=== PATIENT | female | born 1950 | race Caucasian/White ===

== ENCOUNTER 2023-01-09 12:19 | Inpatient (IN) | payer MEDICARE, SELFPAY ==
[2023-01-09] VITALS (27 sets, daily range): BP systolic 104–141; BP diastolic 58–86; PULSE 66–115; RESP 14–55; TEMP 31–36.8; O2SAT 91–100; BMI 30.1
--- NOTE | 2023-01-09 12:43 | DI.CT.S_ITS ---
PROCEDURE: CT HEAD/BRAIN WO CON INDICATIONS: confusion TECHNIQUE: Noncontrast 4.5 mm thick angled axial sections acquired from the foramen magnum to the vertex, with coronal and sagittal reformats. For radiation dose reduction, the following was used: automated exposure control, adjustment of mA and/or kV according to patient size. COMPARISON: None. FINDINGS: Image quality: Excellent. CSF spaces: Basal cisterns are patent. No extra-axial fluid collections. The ventricles are symmetric in size and shape. Brain: No intracranial bleeds or masses. There is cerebral volume loss for age, with resultant ventricular and sulcal prominence. There are periventricular and deep white matter chronic small vessel ischemic changes. There is intracranial internal carotid artery atherosclerosis. Skull and face: Calvarium and visualized facial bones appear intact, without suspicious lesions. Sinuses: Visualized sinuses and mastoids are clear. IMPRESSION: Age-appropriate appearance of brain parenchyma. No evidence acute intracranial process. Dictated by: Butch Guerra M.D. on 01/09/2023 at 13:50 Approved by: Butch Guerra M.D. on 01/09/2023 at 13:51
--- NOTE | 2023-01-09 12:43 | DI.RAD.S_ITS ---
PROCEDURE: XR CHEST 1V INDICATIONS: altered mental status TECHNIQUE: One view of the chest was acquired. COMPARISON: None. FINDINGS: Surgical changes and devices: None. Lungs and pleura: Increased pulmonary markings with streaky perihilar opacities. Small pleural effusions. Mediastinum: Probable cardiomegaly. Bones and chest wall: Convex right rotoscoliosis. IMPRESSION: Suspect moderate pulmonary edema, given streaky perihilar opacities, small effusions and increased pulmonary markings. Dictated by: Salvador Lieberman M.D. on 01/09/2023 at 13:18 Approved by: Salvador Lieberman M.D. on 01/09/2023 at 13:19
--- NOTE | 2023-01-09 13:12 | PC.NURSE ---
Pt family called from waiting room, reports home oxygen battery . Supplied pt portable tank, pt on 4L NC.
[2023-01-09 15:10] LABS: Add Manual Diff / Slide Review NO; Basophils Absolute Auto 0 /uL (0-100); Basophils Percent Auto 0.2 % (0-2); Eosinophils Absolute Auto 100 /uL (0-450); Eosinophils Percent Auto 0.7 % (2-4); Hematocrit 44.2 % (36-46); Lymphocytes Absolute Auto 500 /uL (1100-4500); Lymphocytes Percent Auto 7.6 % (25-40); Mean Corpuscular HGB Conc 31.7 % (30-36); Mean Corpuscular Hemoglobin 29.2 PG (26-34); Mean Corpuscular Volume 91.9 fL (80-100); Monocytes Absolute Auto 800 /uL (0-900); Monocytes Percent Auto 11.2 % (3-14); Neutrophils Absolute Auto 5600 /uL (1500-7000); Neutrophils Percent Auto 80.3 % (50-75); Platelet Count 232 X10^3/uL (150-400); Red Blood Cell Count 4.81 X10^6/uL (4.0-5.2); Red Cell Distribution Width 14.5 % (11.6-14.8)
[2023-01-09 15:33] LABS: Alanine Aminotransferase 25 IU/L (<35); Albumin 3.9 g/dL (3.5-5.0); Albumin Globulin Ratio 0.9 (1.0-2.8); Alkaline Phosphatase 94 U/L (38-126); Aspartate Aminotransferase 27 IU/L (14-36); BUN Creatinine Ratio 37.5 (6-22); Bilirubin Total 0.7 mg/dL (0.2-1.3); Blood Urea Nitrogen 18 mg/dL (7-17); Calcium 8.8 mg/dL (8.4-10.2); Chloride 89 mmol/L (98-107); Estimated Glomerular Filt Rate > 60 mL/min (>60); Globulin 4.3 g/dL (1.7-4.1); Glucose 110 mg/dL (80-110); Potassium 4.7 mmol/L (3.4-5.1); Sodium 140 mmol/L (137-145); Total Protein 8.2 g/dL (6.3-8.2)
[2023-01-09 15:40] LABS: HEMOLYSIS 18 (0-50)
--- NOTE | 2023-01-09 15:43 | ED.GENADULT ---
HPI - General Adult General Chief complaint: Altered Mental Status Stated complaint: Disorientation, hard to wake up, memory issues Time Seen by Provider: 01/09/23 14:41 Source: patient and family () Mode of arrival: Wheelchair Limitations: no limitations History of Present Illness HPI narrative: 72-year-old female. Does have history of COPD. Is on oxygen at home at all times somewhere between 2 and 4 L depending on her activity. There oxygen generator at home failed several weeks ago. She is been on a portable oxygen since then. They have been unable to come and get it fixed. Patient's states that over the past several days and nights she is been occasionally confused. He states he is having very difficult time waking her up at night. They went to an outside hospital recently. She was found to be hypoxic. They increased her oxygen and discharged home. Patient's states that last evening symptoms seem to be getting worse. She was much more difficult to arouse. Has been less active because of balance issues at home as well. Here in the emergency department the patient states she is not having any shortness of breath. No chest pain. No abdominal pain. No nausea or vomiting. Denies any headaches. There has not been any reported trauma. Patient not on anticoagulation. Related Data Allergies Allergy/AdvReac Type Severity Reaction Status Date / Time CLINDAMYCIN Allergy Unknown RASH Uncoded 01/09/23 12:37 PENICILLIN Allergy Unknown RASH Uncoded 01/09/23 12:37 Review of Systems Constitutional Constitutional: Reports system reviewed and no additional complaints, except as documented Cardiovascular Cardiovascular: Reports system reviewed and no additional complaints, except as documented Respiratory Respiratory: Reports system reviewed and no additional complaints, except as documented Gastrointestinal Gastrointestinal: Reports system reviewed and no additional complaints, except as documented Integumentary/Breasts Skin/Breast: Reports system reviewed and no additional complaints, except as documented Neurologic Neurologic: Reports system reviewed and no additional complaints, except as documented Hematologic/Lymphatic On Anticoagulants: No Patient History Medical History COPD (chronic obstructive pulmonary disease) Social History Smoking Status: Never smoker Smoking Status: Never smoker Substance Use Type: does not use Exam Initial Vital Signs Initial Vital Signs: Vital Signs Temperature 97.8 F 01/09/23 12:26 Pulse Rate 110 H 01/09/23 12:26 Respiratory Rate 16 01/09/23 12:26 Blood Pressure 124/60 01/09/23 12:26 Pulse Oximetry 95 01/09/23 12:26 Oxygen Delivery Method Nasal Cannula 01/09/23 12:26 Oxygen Flow Rate 3 01/09/23 12:26 HENMT Head: normal to inspection and normocephalic Resp Effort & Inspection: labored, no respiratory distress and tachypneic Auscultation: clear to auscultation bilaterally Cardio Rate: regular rate Rhythm: regular rhythm GI Inspection: non-distended Skin General: no rashes or lesions noted Neuro General: patient alert, patient awake, moves all extremities, no focal motor deficits, patient confused and not obtunded Extrem General: edema Scores GCS Corwin coma scale eye opening: Spontaneous [place] coma scale verbal response: Confused Corwin coma scale motor response: Obey commands [place] coma scale total score: 14 Course Orders Ordered: ED Orders 01/09/23 12:43 CT head/brain wo con Stat XR chest 1V Stat 01/09/23 14:57 BNP [NT-proBNP (BNP-Adult 18+)] Stat Complete Blood Count AUTO DIFF Stat Comprehensive Metabolic Panel Stat Magnesium Urgent Procalcitonin Urgent TSH w/ Reflex to FT4 Urgent 01/09/23 15:08 EKG-12 Lead Stat 01/09/23 16:09 ABG [Arterial Blood Gas] Stat 01/09/23 16:39 Respiratory Panel (Film Array) Stat 01/09/23 17:00 ABG [Arterial Blood Gas] Stat 01/09/23 17:01 EC echo doppler complete Urgent 01/09/23 17:06 BiPAP Ventilatory Support RT PROTOCOL 01/09/23 17:07 Consult to Tele-special client bus driver Routine 01/09/23 17:45 Troponin I Q6H 01/09/23 23:15 Troponin I Q6H 01/10/23 05:00 BMP [Basic Metabolic Panel] DAILY CBC Auto Diff [Complete Blood Count AUTO DIFF] DAILY 01/10/23 05:15 Troponin I Q6H 01/11/23 05:00 BMP [Basic Metabolic Panel] DAILY CBC Auto Diff [Complete Blood Count AUTO DIFF] DAILY 01/12/23 05:00 BMP [Basic Metabolic Panel] DAILY CBC Auto Diff [Complete Blood Count AUTO DIFF] DAILY Acetaminophen (Acetaminophen 325 Mg Tablet) 650 mg PO Q6H PRN PRN Reason: Fever/Mild Pain (1-3) Albuterol/Ipratropium (Albuterol/Ipratropium 3 Ml Ampul) 3 ml INH [id number] PRN PRN Reason: shortness of breath/wheezing Last Admin: 01/09/23 18:00 Dose: 3 ml Documented By: KARLA Enoxaparin Sodium (Enoxaparin 40 Mg/0.4 Ml Syringe) 40 mg SUBCUT DAILY [facility] Ceftriaxone Sodium 1,000 mg/ (Sodium Chloride) 100 mls @ 200 mls/hr IV Q24H JONATHAN Stop: 01/14/23 16:59 Last Admin: 01/09/23 18:43 Dose: 200 mls/hr Documented By: EFRAIN Azithromycin 500 mg/ Dextrose 250 mls @ 250 mls/hr IV Q24H [facility] Stop: 01/12/23 17:59 Melatonin (Melatonin 3 Mg Tablet) 6 mg PO BEDTIME PRN PRN Reason: Insomnia Methylprednisolone (Methylprednisolone 40 Mg/Ml Vial) 60 mg IV Q6HR [facility] Naloxone HCl (Naloxone 0.4 Mg/Ml Vial) 0.2 mg IV Q2MIN PRN PRN Reason: Opiate Reversal Polyethylene Glycol (Polyethylene Glycol 3350 17 Gm Powd.Pack) 17 gm PO DAILY PRN PRN Reason: Constipation Sennosides (Sennosides 8.6 Mg Tablet) 8.6 mg PO BID PRN PRN Reason: Constipation Discontinued Medications Furosemide (Furosemide 40 Mg/4 Ml Vial) 40 mg IV NOW ONE Stop: 01/09/23 17:06 Last Admin: 01/09/23 18:43 Dose: 40 mg Documented By: EFRAIN Methylprednisolone (Methylprednisolone 125 Mg/2 Ml Vial) 125 mg IV NOW ONE Stop: 01/09/23 17:04 Last Admin: 01/09/23 18:43 Dose: 125 mg Documented By: EFRAIN Vital Signs Vital signs: Vital Signs - 8 hr 01/09/23 12:26 01/09/23 15:01 01/09/23 15:30 Temperature 97.8 F Pulse Rate 110 H 99 H Respiratory Rate 16 19 Blood Pressure 124/60 127/78 Pulse Oximetry 95 100 Oxygen Delivery Method Nasal Cannula Oxygen Flow Rate 3 3.5 Fraction of Inspired Oxygen 01/09/23 15:30 01/09/23 16:00 01/09/23 16:00 Temperature Pulse Rate 106 H 106 H Respiratory Rate 40 H 33 H Blood Pressure 134/62 Pulse Oximetry 98 96 Oxygen Delivery Method Nasal Cannula Nasal Cannula Oxygen Flow Rate 3.5 4 Fraction of Inspired Oxygen 01/09/23 16:45 01/09/23 16:30 01/09/23 16:30 Temperature Pulse Rate 105 H Respiratory Rate Blood Pressure 125/58 L 125/58 L Pulse Oximetry 97 Oxygen Delivery Method Nasal Cannula Oxygen Flow Rate 4 Fraction of Inspired Oxygen 35 01/09/23 17:00 01/09/23 17:00 Temperature Pulse Rate 108 H Respiratory Rate 34 H Blood Pressure 118/61 Pulse Oximetry 98 Oxygen Delivery Method BiPAP Oxygen Flow Rate Fraction of Inspired Oxygen Medical Decision Making Medical Records Medical records reviewed: Yes I reviewed the patient's medical records. Lab Data Lab results reviewed: Yes I reviewed the patient's lab results. 01/09/23 14:57 01/09/23 14:57 Labs: Lab Results 01/09/23 01/09/23 01/09/23 Range/Units 14:57 14:57 14:57 WBC 7.0 (4.5-11.0) X10^3/uL RBC 4.81 (4.0-5.2) X10^6/uL Hgb 14.0 (12.0-16.0) g/dL Hct 44.2 (36-46) % MCV 91.9 (80-100) fL MCH 29.2 (26-34) PG MCHC 31.7 (30-36) % RDW 14.5 (11.6-14.8) % Plt Count 232 (150-400) X10^3/uL Neut % (Auto) 80.3 H (50-75) % Lymph % (Auto) 7.6 L (25-40) % Harrison % (Auto) 11.2 (3-14) % Eos % (Auto) 0.7 L (2-4) % Baso % (Auto) 0.2 (0-2) % Neut # (Auto) 5600 (3284-2736) /uL Lymph # (Auto) 500 L (1961-5465) /uL Harrison # (Auto) 800 (0-900) /uL Eos # (Auto) 100 (0-450) /uL Baso # (Auto) 0 (0-100) /uL ABG pH (7.35-7.45) ABG pCO2 (35-45) mmHg ABG pO2 (80-100) mmHg ABG HCO3 (23-27) mmol/L ABG Total CO2 (23-27) mmol/L ABG O2 Saturation (95-100) % ABG Base Excess (-2-3) mmol/L FiO2 Sodium 140 (137-145) mmol/L Potassium 4.7 (3.4-5.1) mmol/L Chloride 89 L (98-107) mmol/L Carbon Dioxide 51 H* (22-32) mmol/L BUN 18 H (7-17) mg/dL Creatinine 0.48 L (0.52-1.04) mg/dL Estimated GFR > 60 (>60) mL/min BUN/Creatinine Ratio 37.5 H (6-22) Glucose 110 (80-110) mg/dL Calcium 8.8 (8.4-10.2) mg/dL Magnesium (1.6-2.3) mg/dL Total Bilirubin 0.7 (0.2-1.3) mg/dL AST 27 (14-36) IU/L ALT 25 (<35) IU/L Alkaline Phosphatase 94 (38-126) U/L NT-Pro-B Natriuret Pep (<125) pg/mL Total Protein 8.2 (6.3-8.2) g/dL Albumin 3.9 (3.5-5.0) g/dL Globulin 4.3 H (1.7-4.1) g/dL Albumin/Globulin Ratio 0.9 L (1.0-2.8) Procalcitonin 0.05 (<0.5) ng/mL TSH (0.47-4.68) uIU/mL Chlamy pneumoniae PCR (Not Detect) Adenovirus (PCR) (Not Detect) B. pertussis DNA (PCR) (Not Detecte) B.parapertussis DNA PCR (Not Detecte) Coronavirus OC43 (PCR) (Not Detect) Coronavirus HKU1 (PCR) (Not Detect) Coronavirus 229E (PCR) (Not Detect) SARS-CoV-2 (PCR) (Not Detecte) Coronavirus NL63 (PCR) (Not Detect) Human Metapneumovir PCR (Not Detect) Influenza Type A (PCR) (Not Detect) Influenza Type B (PCR) (Not Detect) M. pneumoniae (PCR) (Not Detect) Parainfluenza 1 (PCR) (Not Detect) Parainfluenza 2 (PCR) (Not Detect) Parainfluenza 3 (PCR) (Not Detect) Parainfluenza 4 (PCR) (Not Detect) RSV (PCR) (Not Detect) Entero/Rhino (PCR) (Not Detect) 01/09/23 01/09/23 01/09/23 Range/Units 14:57 14:57 14:57 WBC (4.5-11.0) X10^3/uL RBC (4.0-5.2) X10^6/uL Hgb (12.0-16.0) g/dL Hct (36-46) % MCV (80-100) fL MCH (26-34) PG MCHC (30-36) % RDW (11.6-14.8) % Plt Count (150-400) X10^3/uL Neut % (Auto) (50-75) % Lymph % (Auto) (25-40) % Harrison % (Auto) (3-14) % Eos % (Auto) (2-4) % Baso % (Auto) (0-2) % Neut # (Auto) (0124-0808) /uL Lymph # (Auto) (8618-2362) /uL Harrison # (Auto) (0-900) /uL Eos # (Auto) (0-450) /uL Baso # (Auto) (0-100) /uL ABG pH (7.35-7.45) ABG pCO2 (35-45) mmHg ABG pO2 (80-100) mmHg ABG HCO3 (23-27) mmol/L ABG Total CO2 (23-27) mmol/L ABG O2 Saturation (95-100) % ABG Base Excess (-2-3) mmol/L FiO2 Sodium (137-145) mmol/L Potassium (3.4-5.1) mmol/L Chloride (98-107) mmol/L Carbon Dioxide (22-32) mmol/L BUN (7-17) mg/dL Creatinine (0.52-1.04) mg/dL Estimated GFR (>60) mL/min BUN/Creatinine Ratio (6-22) Glucose (80-110) mg/dL Calcium (8.4-10.2) mg/dL Magnesium 1.8 (1.6-2.3) mg/dL Total Bilirubin (0.2-1.3) mg/dL AST (14-36) IU/L ALT (<35) IU/L Alkaline Phosphatase (38-126) U/L NT-Pro-B Natriuret Pep 2480 H (<125) pg/mL Total Protein (6.3-8.2) g/dL Albumin (3.5-5.0) g/dL Globulin (1.7-4.1) g/dL Albumin/Globulin Ratio (1.0-2.8) Procalcitonin (<0.5) ng/mL TSH 1.12 (0.47-4.68) uIU/mL Chlamy pneumoniae PCR (Not Detect) Adenovirus (PCR) (Not Detect) B. pertussis DNA (PCR) (Not Detecte) B.parapertussis DNA PCR (Not Detecte) Coronavirus OC43 (PCR) (Not Detect) Coronavirus HKU1 (PCR) (Not Detect) Coronavirus 229E (PCR) (Not Detect) SARS-CoV-2 (PCR) (Not Detecte) Coronavirus NL63 (PCR) (Not Detect) Human Metapneumovir PCR (Not Detect) Influenza Type A (PCR) (Not Detect) Influenza Type B (PCR) (Not Detect) M. pneumoniae (PCR) (Not Detect) Parainfluenza 1 (PCR) (Not Detect) Parainfluenza 2 (PCR) (Not Detect) Parainfluenza 3 (PCR) (Not Detect) Parainfluenza 4 (PCR) (Not Detect) RSV (PCR) (Not Detect) Entero/Rhino (PCR) (Not Detect) 01/09/23 01/09/23 Range/Units 16:09 16:39 WBC (4.5-11.0) X10^3/uL RBC (4.0-5.2) X10^6/uL Hgb (12.0-16.0) g/dL Hct (36-46) % MCV (80-100) fL MCH (26-34) PG MCHC (30-36) % RDW (11.6-14.8) % Plt Count (150-400) X10^3/uL Neut % (Auto) (50-75) % Lymph % (Auto) (25-40) % Harrison % (Auto) (3-14) % Eos % (Auto) (2-4) % Baso % (Auto) (0-2) % Neut # (Auto) (1365-6963) /uL Lymph # (Auto) (4384-0689) /uL Harrison # (Auto) (0-900) /uL Eos # (Auto) (0-450) /uL Baso # (Auto) (0-100) /uL ABG pH 7.27 L* (7.35-7.45) ABG pCO2 114.7 H* (35-45) mmHg ABG pO2 107 H (80-100) mmHg ABG HCO3 52 H (23-27) mmol/L ABG Total CO2 > 50 H (23-27) mmol/L ABG O2 Saturation 96 (95-100) % ABG Base Excess 25.0 H (-2-3) mmol/L FiO2 32 Sodium (137-145) mmol/L Potassium (3.4-5.1) mmol/L Chloride (98-107) mmol/L Carbon Dioxide (22-32) mmol/L BUN (7-17) mg/dL Creatinine (0.52-1.04) mg/dL Estimated GFR (>60) mL/min BUN/Creatinine Ratio (6-22) Glucose (80-110) mg/dL Calcium (8.4-10.2) mg/dL Magnesium (1.6-2.3) mg/dL Total Bilirubin (0.2-1.3) mg/dL AST (14-36) IU/L ALT (<35) IU/L Alkaline Phosphatase (38-126) U/L NT-Pro-B Natriuret Pep (<125) pg/mL Total Protein (6.3-8.2) g/dL Albumin (3.5-5.0) g/dL Globulin (1.7-4.1) g/dL Albumin/Globulin Ratio (1.0-2.8) Procalcitonin (<0.5) ng/mL TSH (0.47-4.68) uIU/mL Chlamy pneumoniae PCR Not detected (Not Detect) Adenovirus (PCR) Not detected (Not Detect) B. pertussis DNA (PCR) Not detected (Not Detecte) B.parapertussis DNA PCR Not detected (Not Detecte) Coronavirus OC43 (PCR) Not detected (Not Detect) Coronavirus HKU1 (PCR) Not detected (Not Detect) Coronavirus 229E (PCR) Not detected (Not Detect) SARS-CoV-2 (PCR) Not detected (Not Detecte) Coronavirus NL63 (PCR) Not detected (Not Detect) Human Metapneumovir PCR Not detected (Not Detect) Influenza Type A (PCR) Not detected (Not Detect) Influenza Type B (PCR) Not detected (Not Detect) M. pneumoniae (PCR) Not detected (Not Detect) Parainfluenza 1 (PCR) Not detected (Not Detect) Parainfluenza 2 (PCR) Not detected (Not Detect) Parainfluenza 3 (PCR) Not detected (Not Detect) Parainfluenza 4 (PCR) Not detected (Not Detect) RSV (PCR) Not detected (Not Detect) Entero/Rhino (PCR) Not detected (Not Detect) Imaging Data Chest x-ray: Radiologist's Impression: PROCEDURE:? XR CHEST 1V ? INDICATIONS:? altered mental status ? TECHNIQUE:? One view of the chest was acquired.? ? COMPARISON:? None. ? FINDINGS:? ? Surgical changes and devices:? None.? ? Lungs and pleura:? Increased pulmonary markings with streaky perihilar opacities.? Small pleural effusions. ? Mediastinum:? Probable cardiomegaly. ? Bones and chest wall:? Convex right rotoscoliosis. ? IMPRESSION:? Suspect moderate pulmonary edema, given streaky perihilar opacities, small effusions and increased pulmonary markings. CT scan - head: Radiologist's Impression: PROCEDURE:? CT HEAD/BRAIN WO CON ? INDICATIONS:? confusion ? TECHNIQUE:? Noncontrast 4.5 mm thick angled axial sections acquired from the foramen magnum to the vertex, with coronal and sagittal reformats.? For radiation dose reduction, the following was used:? automated exposure control, adjustment of mA and/or kV according to patient size.? ? COMPARISON:? None. ? FINDINGS:? Image quality:? Excellent.? ? CSF spaces:? Basal cisterns are patent.? No extra-axial fluid collections.? The ventricles are symmetric in size and shape.? ? Brain:? No intracranial bleeds or masses.? There is cerebral volume loss for age, with resultant ventricular and sulcal prominence.? There are periventricular and deep white matter chronic small vessel ischemic changes.? There is intracranial internal carotid artery atherosclerosis.? ? Skull and face:? Calvarium and visualized facial bones appear intact, without suspicious lesions.? ? Sinuses:? Visualized sinuses and mastoids are clear.? ? IMPRESSION:? Age-appropriate appearance of brain parenchyma.? No evidence acute intracranial process. ECG Data Attestation: I personally reviewed and interpreted this ECG as follows: Interpretation: Sinus tachycardia Ventricular rate 101 Left axis deviation Normal QRS Normal QTC LVH No ST T wave changes MDM Narrative Medical decision making narrative: Patient does have a history of COPD. Her oxygen saturations since being here in the emergency department or in the mid 90s. Her CO2 is significantly elevated which I suspect is the cause of her confusion and her difficulty with arousal. Given her medical history I do doubt that the patient normally lives at a normal CO2 but I feel that 114 is much higher than what would be her baseline. She is acidotic because of this. Patient is alert to person and place but is somewhat confused about the situation is why she is here and she also repeats questions multiple times. Had a discussion with her and her family at bedside about BiPAP. Initially patient was reluctant to this however we discussed alternatives which would be to do nothing versus intubation both of which I felt were not appropriate given her presentation. She did expressed understanding of this. She did tolerate BiPAP fairly well. I did discuss the case with Dr. Cruz on-call for Internal Medicine. Patient does require admission to the hospital for further respiratory support. He will admit. Family expressed understanding and agreement with admission as well. Discharge Plan Departure Patient Disposition: Admitted As Inpatient Clinical Impression: Hypercapnic respiratory failure, COPD (chronic obstructive pulmonary disease) Admit Date/Time: 01/09/23 17:14 Admit Provider: Ru Cruz
[2023-01-09 16:00] LABS: Carbon Dioxide 51 mmol/L (22-32)
[2023-01-09 16:21] LABS: Fractionated Inspired Oxygen 32; HCO3 ABG 52 mmol/L (23-27); Oxygen Saturation ABG 96 % (95-100); PCO2 ABG 114.7 mmHg (35-45); PO2 ABG 107 mmHg (80-100); TCO2 ABG > 50 mmol/L (23-27); pH ABG 7.27 (7.35-7.45)
--- NOTE | 2023-01-09 16:47 | RT ---
PT PLACED ON BIPAP IN ED FOR HYPERCAPNEA PER VERBAL ORDER BY DR. PORTILLO.
--- NOTE | 2023-01-09 17:01 | DI.ECHO.S_ITS ---
[place] [facility]---------+ [facility] +---------+ : : [address] [place] [address] : : : : [id number] : : : : Phone: [phone]+ Echocardiogram Report + + :Name: SHEEBA KELLY Study Date: 01/10/2023 Height: 58 in : :[facility] ReadingLocation: Weight: 144 lb: : Gender: Female BSA: 1.6 m2 : :: 1950 Age: 72 yrs BP: 91/53 mmHg: :Reason For Study: PULMONARY EDEMA : :Ordering Physician: PARISA, : :FAMILIA Iniguez Performed By: Karina Wells : :Referring: FAMILIA MCCAULEY : + + Interpretation Summary There is mild concentric left ventricular hypertrophy. The ejection fraction is estimated to be 50-55%. Diastolic parameters suggest probable elevated filling pressures. The right ventricle is mildly dilated. The right ventricular systolic function is normal. Mild biatrial enlargement. There is mild aortic regurgitation. Pulmonary artery pressures cannot be estimated because of the lack of a measurable TR jet velocity. There is a trivial pericardial effusion noted. Procedure: A two-dimensional transthoracic echocardiogram with color flow and Doppler was performed. The study quality was technically difficult. There is no prior echocardiogram noted for this patient. The patient was in sinus rhythm with heart rates between 68-91 bpm during the exam. Left Ventricle: The left ventricle is normal in size. There is mild concentric left ventricular hypertrophy. The ejection fraction is estimated to be 50-55%. Diastolic function could not be accurately assessed due to unobtainable data. Diastolic parameters suggest probable elevated filling pressures. Right Ventricle: The right ventricle is mildly dilated. The right ventricular systolic function is normal. Atria: The left atrium is mildly dilated. The right atrium is mildly dilated. There is no Doppler evidence for an interatrial shunt. Mitral Valve: The mitral valve is normal in structure and function. There is trace mitral regurgitation. Aortic Valve: The aortic valve is not well visualized. There is no aortic valve stenosis. There is mild aortic regurgitation. Tricuspid Valve: The tricuspid valve is normal in structure and function. There is trace tricuspid regurgitation. Pulmonary artery pressures cannot be estimated because of the lack of a measurable TR jet velocity. Pulmonic Valve: The pulmonic valve is not well visualized. There is no pulmonic valvular regurgitation. Great Vessels: The aortic root is normal size. The ascending aorta could not be visualized. The inferior vena cava was not visualized. Pericardium/ Pleura There is a trivial pericardial effusion noted. There is no pleural effusion. MMode/2D Measurements & Calculations LVIDd: 4.6 cm LVOT diam: 2.2 cm LVIDs: 3.2 cm Ao root diam: 3.2 cm FS: 31.5 % Ao Arch Diam (Prox Trans): 3.5 cm EPSS: 1.7 cm IVSd: 1.1 cm LVPWd: 0.78 cm LV major. diameter/BSA (cm/m^2): 2.9 LV sys. diameter/BSA (cm/m^2): 2.0 LA A2 area: 18.6 cm2 RA long axis: 4.7 cm LA A4 area: 19.6 cm2 RA area: 17.5 cm2 LA length (vol): 5.3 cm RA vol: 55.3 ml LA vol: 58.0 ml RA : 34.9 ml/m2 LA vol index: 36.6 ml/m2 RVD1 (basal): 3.9 cm RVD2 (mid): 3.2 cm TAPSE: 2.1 cm Doppler Measurements & Calculations Ao V2 max: 126.8 cm/sec LVOT Max Chirss: 90.2 cm/sec Ao V2 mean: 92.1 cm/sec LV V1 max P.3 mmHg Ao max P.4 mmHg LV V1 VTI: 18.5 cm Ao mean P.7 mmHg MARVA(I,D): 2.7 cm2 Ao V2 VTI: 24.5 cm MARVA(V,D): 2.6 cm2 sev ratio: 0.75 MARVA indexed to BSA (cm^2/m^2): 1.7 MV E max chriss: 105.7 cm/sec PA V2 max: 76.1 cm/sec MV A max chriss: 84.1 cm/sec PA V2 mean: 57.0 cm/sec MV E/A: 1.3 PA mean P.4 mmHg Med Peak E' Chriss: 5.3 cm/sec PA pr(Accel): 39.6 mmHg E/E' med: 19.9 Lat Peak E' Chriss: 5.2 cm/sec E/E' lat: 20.1 E/e' average: 20.0 MV dec time: 0.23 sec SV(LVOT): 67.1 ml Reading Physician:08:37 AM
[2023-01-09 17:26] LABS: Magnesium 1.8 mg/dL (1.6-2.3)
[2023-01-09 17:36] LABS: NT-proBNP (BNP-Adult 18+) 2480 pg/mL (<125)
[2023-01-09 17:43] LABS: Procalcitonin 0.05 ng/mL (<0.5)
[2023-01-09 17:55] LABS: Adenovirus Not Detected (Not Detect); B. parapertussis Not Detected (Not Detecte); Bordetella pertussis Not Detected (Not Detecte); Chlamydophila pneumoniae Not Detected (Not Detect); Coronavirus 229E Not Detected (Not Detect); Coronavirus HKU1 Not Detected (Not Detect); Coronavirus NL 63 Not Detected (Not Detect); Coronavirus OC43 Not Detected (Not Detect); Human Metapneumovirus Not Detected (Not Detect); Human Rhinovirus/Enterovirus Not Detected (Not Detect); Influenza A Not Detected (Not Detect); Influenza B Not Detected (Not Detect); Mycoplasma pneumoniae Not Detected (Not Detect); Parainfluenza Virus 1 Not Detected (Not Detect); Parainfluenza Virus 2 Not Detected (Not Detect); Parainfluenza Virus 3 Not Detected (Not Detect); Parainfluenza Virus 4 Not Detected (Not Detect); Respiratory Syncytial Virus Not Detected (Not Detect); SARS- CoV-2 Not Detected (Not Detecte)
[2023-01-09 17:57] LABS: TSH w/ Reflex to FT4 1.12 uIU/mL (0.47-4.68)
[2023-01-09] MEDS: ALBUTEROL/IPRATROPIUM 3 ML AMPUL INH (18:00)
[2023-01-09 18:33] LABS: Troponin I 0.058 ng/mL (0.01-0.034)
--- NOTE | 2023-01-09 18:42 | PM.CN.EICU ---
History of Present Illness Consult details IF CAMERA ACTIVATED, patient seen via real-time interactive audiovisual communication: Camera activated Chief complaint: Disorientation, hard to wake up, memory issues Consent obtained for tele-edge bander hand care: Yes Patient Location: ICU Provider location (State): [place] Other participants/roles: Dr. Cruz [facility] Medical History (Updated 01/09/23 @ 18:58 by Catracho Sheth DO) COPD (chronic obstructive pulmonary disease) Social History household members: spouse Smoking Status: Never smoker alcohol intake: never Current Medications Current Medications Medications: Visit Medications (administered) Generic Name Dose Route Start Last Admin Trade Name Freq PRN Reason Stop Dose Admin Albuterol/Ipratropium 3 ml 01/09/23 16:58 01/09/23 18:00 Albuterol/Ipratropium 3 Ml Ampul INH 3 ml [id number] PRN Administration shortness of breath/wheezing Exam Vital Signs (past 8 hours): - 01/09/23 12:26 01/09/23 15:01 01/09/23 15:30 Temperature 97.8 F Pulse Rate 110 H 99 H Respiratory Rate 16 19 Blood Pressure 124/60 127/78 Pulse Oximetry 95 100 Oxygen Delivery Method Nasal Cannula Oxygen Flow Rate 3 3.5 Fraction of Inspired Oxygen 01/09/23 15:30 01/09/23 16:00 01/09/23 16:00 Temperature Pulse Rate 106 H 106 H Respiratory Rate 40 H 33 H Blood Pressure 134/62 Pulse Oximetry 98 96 Oxygen Delivery Method Nasal Cannula Nasal Cannula Oxygen Flow Rate 3.5 4 Fraction of Inspired Oxygen 01/09/23 16:45 01/09/23 16:30 01/09/23 16:30 Temperature Pulse Rate 105 H Respiratory Rate Blood Pressure 125/58 L 125/58 L Pulse Oximetry 97 Oxygen Delivery Method Nasal Cannula Oxygen Flow Rate 4 Fraction of Inspired Oxygen 35 01/09/23 17:00 01/09/23 17:00 01/09/23 17:30 Temperature Pulse Rate 108 H 105 H Respiratory Rate 34 H 34 H Blood Pressure 118/61 Pulse Oximetry 98 Oxygen Delivery Method BiPAP Oxygen Flow Rate Fraction of Inspired Oxygen 01/09/23 17:31 01/09/23 17:31 01/09/23 18:00 Temperature Pulse Rate 105 H Respiratory Rate 26 H Blood Pressure 133/60 122/58 L Pulse Oximetry 92 Oxygen Delivery Method BiPAP Oxygen Flow Rate Fraction of Inspired Oxygen 35 01/09/23 18:00 01/09/23 18:00 Temperature Pulse Rate 90 Respiratory Rate 36 H Blood Pressure 122/58 L Pulse Oximetry 98 Oxygen Delivery Method BiPAP Oxygen Flow Rate Fraction of Inspired Oxygen Fraction of Inspired Oxygen 35 Oxygen Delivery Method BiPAP Oxygen Flow Rate 4 Objective Labs 01/09/23 14:57 01/09/23 14:57 Labs: Laboratory Results - last 24 hr 01/09/23 01/09/23 01/09/23 14:57 14:57 14:57 WBC 7.0 RBC 4.81 Hgb 14.0 Hct 44.2 MCV 91.9 MCH 29.2 MCHC 31.7 RDW 14.5 Plt Count 232 Neut % (Auto) 80.3 H Lymph % (Auto) 7.6 L [place] % (Auto) 11.2 Eos % (Auto) 0.7 L Baso % (Auto) 0.2 Neut # (Auto) 5600 Lymph # (Auto) 500 L [place] # (Auto) 800 Eos # (Auto) 100 Baso # (Auto) 0 ABG pH ABG pCO2 ABG pO2 ABG HCO3 ABG Total CO2 ABG O2 Saturation ABG Base Excess FiO2 Sodium 140 Potassium 4.7 Chloride 89 L Carbon Dioxide 51 H* BUN 18 H Creatinine 0.48 L Estimated GFR > 60 BUN/Creatinine Ratio 37.5 H Glucose 110 Calcium 8.8 Magnesium Total Bilirubin 0.7 AST 27 ALT 25 Alkaline Phosphatase 94 Troponin I NT-Pro-B Natriuret Pep Total Protein 8.2 Albumin 3.9 Globulin 4.3 H Albumin/Globulin Ratio 0.9 L Procalcitonin 0.05 TSH Chlamy pneumoniae PCR Adenovirus (PCR) B. pertussis DNA (PCR) B.parapertussis DNA PCR Coronavirus OC43 (PCR) Coronavirus HKU1 (PCR) Coronavirus 229E (PCR) SARS-CoV-2 (PCR) Coronavirus NL63 (PCR) Human Metapneumovir PCR Influenza Type A (PCR) Influenza Type B (PCR) M. pneumoniae (PCR) Parainfluenza 1 (PCR) Parainfluenza 2 (PCR) Parainfluenza 3 (PCR) Parainfluenza 4 (PCR) RSV (PCR) Entero/Rhino (PCR) 01/09/23 01/09/23 01/09/23 14:57 14:57 14:57 WBC RBC Hgb Hct MCV MCH MCHC RDW Plt Count Neut % (Auto) Lymph % (Auto) [place] % (Auto) Eos % (Auto) Baso % (Auto) Neut # (Auto) Lymph # (Auto) [place] # (Auto) Eos # (Auto) Baso # (Auto) ABG pH ABG pCO2 ABG pO2 ABG HCO3 ABG Total CO2 ABG O2 Saturation ABG Base Excess FiO2 Sodium Potassium Chloride Carbon Dioxide BUN Creatinine Estimated GFR BUN/Creatinine Ratio Glucose Calcium Magnesium 1.8 Total Bilirubin AST ALT Alkaline Phosphatase Troponin I NT-Pro-B Natriuret Pep 2480 H Total Protein Albumin Globulin Albumin/Globulin Ratio Procalcitonin TSH 1.12 Chlamy pneumoniae PCR Adenovirus (PCR) B. pertussis DNA (PCR) B.parapertussis DNA PCR Coronavirus OC43 (PCR) Coronavirus HKU1 (PCR) Coronavirus 229E (PCR) SARS-CoV-2 (PCR) Coronavirus NL63 (PCR) Human Metapneumovir PCR Influenza Type A (PCR) Influenza Type B (PCR) M. pneumoniae (PCR) Parainfluenza 1 (PCR) Parainfluenza 2 (PCR) Parainfluenza 3 (PCR) Parainfluenza 4 (PCR) RSV (PCR) Entero/Rhino (PCR) 01/09/23 01/09/23 01/09/23 16:09 16:39 17:45 WBC RBC Hgb Hct MCV MCH MCHC RDW Plt Count Neut % (Auto) Lymph % (Auto) [place] % (Auto) Eos % (Auto) Baso % (Auto) Neut # (Auto) Lymph # (Auto) [place] # (Auto) Eos # (Auto) Baso # (Auto) ABG pH 7.27 L* ABG pCO2 114.7 H* ABG pO2 107 H ABG HCO3 52 H ABG Total CO2 > 50 H ABG O2 Saturation 96 ABG Base Excess 25.0 H FiO2 32 Sodium Potassium Chloride Carbon Dioxide BUN Creatinine Estimated GFR BUN/Creatinine Ratio Glucose Calcium Magnesium Total Bilirubin AST ALT Alkaline Phosphatase Troponin I 0.058 H NT-Pro-B Natriuret Pep Total Protein Albumin Globulin Albumin/Globulin Ratio Procalcitonin TSH Chlamy pneumoniae PCR Not detected Adenovirus (PCR) Not detected B. pertussis DNA (PCR) Not detected B.parapertussis DNA PCR Not detected Coronavirus OC43 (PCR) Not detected Coronavirus HKU1 (PCR) Not detected Coronavirus 229E (PCR) Not detected SARS-CoV-2 (PCR) Not detected Coronavirus NL63 (PCR) Not detected Human Metapneumovir PCR Not detected Influenza Type A (PCR) Not detected Influenza Type B (PCR) Not detected M. pneumoniae (PCR) Not detected Parainfluenza 1 (PCR) Not detected Parainfluenza 2 (PCR) Not detected Parainfluenza 3 (PCR) Not detected Parainfluenza 4 (PCR) Not detected RSV (PCR) Not detected Entero/Rhino (PCR) Not detected Assessment & Plan Assessment & Plan narrative: patient see on camera chart/labs/imaging reviewed case discussed with Dr. Cruz and bedside nurse 72 year old female with PMx of copd, kyphosis admitted to ICU for acute resp failure CHF exacerbation currently afebrile, HD stable aler awake follows some commands bnp 2480 abg 7.27/117/52 suggest -nuerochecks/seizure precautions -avoid benzos/opiods -bipap, optimize minute ventilation -repeat abg, if no improvement would consider intubation -nebs -steorids -check serial ekg/trop -check echo -lasix for diuretics -abx -cxs -monitor ins/outs -replace lytes -gi/dvt ppx -please call eICU if condition changes total ccm time 45 mins Time Spent With Patient Critical Care time: I spent a total of [] minutes of critical care time on this patient's care today; this time is exclusive of procedural time.
[2023-01-09] MEDS: methylPREDNISolone 125 MG/2 ML VIAL IV (18:43)
[2023-01-09] MEDS: cefTRIAXone 1,000 MG in SODIUM CHLORIDE 0.9% 100 ML 200 MG IV (18:43)
[2023-01-09] MEDS: FUROSEMIDE 40 MG/4 ML VIAL IV (18:43)
--- NOTE | 2023-01-09 18:51 | P.HP_ITS ---
History of Present Illness History of Present Illness Date Patient Seen: 01/09/23 Chief complaint: Disorientation, hard to wake up, memory issues Narrative: Sayra Null is a 72yo F with PMH of right-sided HF on chronic 1-2L O2, COPD, and scoliosis with kyphosis who presents with several days of worsening SOB and changes in mental status. History is obtained from as patient is int ermittently altered. He states she has been increasingly become more SOB and loopy after her home O2 machine stopped working, so he brought her to [place] ED. There they told her to increase her O2 and discharged her. She seemed to be better at home but then began to worsen and she became more and more altered so he brought her to [place] ED. In the ED patient had an ABG with pCO2 of 114 and was placed on Bipap. Patient's mental status currently seems to have improved on Bipap and she is oriented x2. Says she would like to be full code. Patient History Medical History (Updated 01/09/23 @ 18:58 by Catracho Sheth DO) COPD (chronic obstructive pulmonary disease) Family & Social History Safety & Behavioral: Feels Safe in Current Yes Environment Been Physically Hurt or No Threatened By a Person Tobacco & Substance use: Smoking Status Never smoker Substance Use Type does not use Meds Home Medications and Allergies Allergies Allergy/AdvReac Type Severity Reaction Status Date / Time CLINDAMYCIN Allergy Unknown RASH Uncoded 01/09/23 12:37 PENICILLIN Allergy Unknown RASH Uncoded 01/09/23 12:37 Review of Systems Review of Systems Narrative: All other systems reviewed with the patient and are negative unless otherwise stated. Exam Vital Signs (past 8 hours): - 01/09/23 12:26 01/09/23 15:01 01/09/23 15:30 Temperature 97.8 F Pulse Rate 110 H 99 H Respiratory Rate 16 19 Blood Pressure 124/60 127/78 Pulse Oximetry 95 100 Oxygen Delivery Method Nasal Cannula Oxygen Flow Rate 3 3.5 Fraction of Inspired Oxygen 01/09/23 15:30 01/09/23 16:00 01/09/23 16:00 Temperature Pulse Rate 106 H 106 H Respiratory Rate 40 H 33 H Blood Pressure 134/62 Pulse Oximetry 98 96 Oxygen Delivery Method Nasal Cannula Nasal Cannula Oxygen Flow Rate 3.5 4 Fraction of Inspired Oxygen 01/09/23 16:45 01/09/23 16:30 01/09/23 16:30 Temperature Pulse Rate 105 H Respiratory Rate Blood Pressure 125/58 L 125/58 L Pulse Oximetry 97 Oxygen Delivery Method Nasal Cannula Oxygen Flow Rate 4 Fraction of Inspired Oxygen 35 01/09/23 17:00 01/09/23 17:00 01/09/23 17:30 Temperature Pulse Rate 108 H 105 H Respiratory Rate 34 H 34 H Blood Pressure 118/61 Pulse Oximetry 98 Oxygen Delivery Method BiPAP Oxygen Flow Rate Fraction of Inspired Oxygen 01/09/23 17:31 01/09/23 17:31 01/09/23 18:00 Temperature Pulse Rate 105 H Respiratory Rate 26 H Blood Pressure 133/60 122/58 L Pulse Oximetry 92 Oxygen Delivery Method BiPAP Oxygen Flow Rate Fraction of Inspired Oxygen 35 01/09/23 18:00 01/09/23 18:00 Temperature Pulse Rate 90 Respiratory Rate 36 H Blood Pressure 122/58 L Pulse Oximetry 98 Oxygen Delivery Method BiPAP Oxygen Flow Rate Fraction of Inspired Oxygen Fraction of Inspired Oxygen 35 Oxygen Delivery Method BiPAP Oxygen Flow Rate 4 Narrative Exam Narrative: GEN: no acute distress HEENT: moist mucous membranes, PERRL NECK: trachea midline, no JVD CV: regular rate and rhythm, no murmurs PULM: clear bilaterally ABD: soft, nontender, nondistended, no organomegaly EXT: warm and well perfused with no edema NEURO: awake, alert, oriented, no focal deficits Objective Labs 01/09/23 14:57 01/09/23 14:57 Labs: Laboratory Results - last 24 hr 01/09/23 01/09/23 01/09/23 14:57 14:57 14:57 WBC 7.0 RBC 4.81 Hgb 14.0 Hct 44.2 MCV 91.9 MCH 29.2 MCHC 31.7 RDW 14.5 Plt Count 232 Neut % (Auto) 80.3 H Lymph % (Auto) 7.6 L [place] % (Auto) 11.2 Eos % (Auto) 0.7 L Baso % (Auto) 0.2 Neut # (Auto) 5600 Lymph # (Auto) 500 L [place] # (Auto) 800 Eos # (Auto) 100 Baso # (Auto) 0 ABG pH ABG pCO2 ABG pO2 ABG HCO3 ABG Total CO2 ABG O2 Saturation ABG Base Excess FiO2 Sodium 140 Potassium 4.7 Chloride 89 L Carbon Dioxide 51 H* BUN 18 H Creatinine 0.48 L Estimated GFR > 60 BUN/Creatinine Ratio 37.5 H Glucose 110 Calcium 8.8 Magnesium Total Bilirubin 0.7 AST 27 ALT 25 Alkaline Phosphatase 94 Troponin I NT-Pro-B Natriuret Pep Total Protein 8.2 Albumin 3.9 Globulin 4.3 H Albumin/Globulin Ratio 0.9 L Procalcitonin 0.05 TSH Chlamy pneumoniae PCR Adenovirus (PCR) B. pertussis DNA (PCR) B.parapertussis DNA PCR Coronavirus OC43 (PCR) Coronavirus HKU1 (PCR) Coronavirus 229E (PCR) SARS-CoV-2 (PCR) Coronavirus NL63 (PCR) Human Metapneumovir PCR Influenza Type A (PCR) Influenza Type B (PCR) M. pneumoniae (PCR) Parainfluenza 1 (PCR) Parainfluenza 2 (PCR) Parainfluenza 3 (PCR) Parainfluenza 4 (PCR) RSV (PCR) Entero/Rhino (PCR) 01/09/23 01/09/23 01/09/23 14:57 14:57 14:57 WBC RBC Hgb Hct MCV MCH MCHC RDW Plt Count Neut % (Auto) Lymph % (Auto) [place] % (Auto) Eos % (Auto) Baso % (Auto) Neut # (Auto) Lymph # (Auto) [place] # (Auto) Eos # (Auto) Baso # (Auto) ABG pH ABG pCO2 ABG pO2 ABG HCO3 ABG Total CO2 ABG O2 Saturation ABG Base Excess FiO2 Sodium Potassium Chloride Carbon Dioxide BUN Creatinine Estimated GFR BUN/Creatinine Ratio Glucose Calcium Magnesium 1.8 Total Bilirubin AST ALT Alkaline Phosphatase Troponin I NT-Pro-B Natriuret Pep 2480 H Total Protein Albumin Globulin Albumin/Globulin Ratio Procalcitonin TSH 1.12 Chlamy pneumoniae PCR Adenovirus (PCR) B. pertussis DNA (PCR) B.parapertussis DNA PCR Coronavirus OC43 (PCR) Coronavirus HKU1 (PCR) Coronavirus 229E (PCR) SARS-CoV-2 (PCR) Coronavirus NL63 (PCR) Human Metapneumovir PCR Influenza Type A (PCR) Influenza Type B (PCR) M. pneumoniae (PCR) Parainfluenza 1 (PCR) Parainfluenza 2 (PCR) Parainfluenza 3 (PCR) Parainfluenza 4 (PCR) RSV (PCR) Entero/Rhino (PCR) 01/09/23 01/09/23 01/09/23 16:09 16:39 17:45 WBC RBC Hgb Hct MCV MCH MCHC RDW Plt Count Neut % (Auto) Lymph % (Auto) [place] % (Auto) Eos % (Auto) Baso % (Auto) Neut # (Auto) Lymph # (Auto) [place] # (Auto) Eos # (Auto) Baso # (Auto) ABG pH 7.27 L* ABG pCO2 114.7 H* ABG pO2 107 H ABG HCO3 52 H ABG Total CO2 > 50 H ABG O2 Saturation 96 ABG Base Excess 25.0 H FiO2 32 Sodium Potassium Chloride Carbon Dioxide BUN Creatinine Estimated GFR BUN/Creatinine Ratio Glucose Calcium Magnesium Total Bilirubin AST ALT Alkaline Phosphatase Troponin I 0.058 H NT-Pro-B Natriuret Pep Total Protein Albumin Globulin Albumin/Globulin Ratio Procalcitonin TSH Chlamy pneumoniae PCR Not detected Adenovirus (PCR) Not detected B. pertussis DNA (PCR) Not detected B.parapertussis DNA PCR Not detected Coronavirus OC43 (PCR) Not detected Coronavirus HKU1 (PCR) Not detected Coronavirus 229E (PCR) Not detected SARS-CoV-2 (PCR) Not detected Coronavirus NL63 (PCR) Not detected Human Metapneumovir PCR Not detected Influenza Type A (PCR) Not detected Influenza Type B (PCR) Not detected M. pneumoniae (PCR) Not detected Parainfluenza 1 (PCR) Not detected Parainfluenza 2 (PCR) Not detected Parainfluenza 3 (PCR) Not detected Parainfluenza 4 (PCR) Not detected RSV (PCR) Not detected Entero/Rhino (PCR) Not detected Assessment & Plan Assessment & Plan narrative: # acute on chronic hypercapnic and hypoxic respiratory failure -patient normally on 1-2L at home, required Bipap in ED due to ABG with pCO2 of 114 -BMP with bicarb 51 so likely chronic CO2 retainer -continue Bipap -repeat ABG ordered -etiology likely CHF as pulm edema on CXR which may be from patient's R sided CHF, BNP 2480 -steroids ordered to cover for COPD exacerbation, however no wheezes on exam -lasix 40 BID -echo ordered #elevated troponin due to myocardial injury -trop 0.058, will trend but likely due to resp failure as no CP Code status is full code. COVID negative. DVT prophylaxis with Lovenox. Proxy is . I have reviewed home meds and used all available resources to reconcile the home meds. I spent a total of 35 minutes of critical care time on this patient's care today; this time is exclusive of procedural time. This patient will be admitted as ICU and will require greater than 2 midnights of hospital time to treat hypercapnic respiratory failure. Time Spent With Patient Critical Care time: I spent a total of [] minutes of critical care time on this patient's care today; this time is exclusive of procedural time.
[2023-01-09] MEDS: dexmedeTOMIDine in 0.9 % NaCL 400 MCG/100 ML PLAST..BAG IV (19:54)
[2023-01-09 20:21] LABS: Fractionated Inspired Oxygen 35; HCO3 ABG 51 mmol/L (23-27); Oxygen Saturation ABG 97 % (95-100); PCO2 ABG 56.5 mmHg (35-45); PO2 ABG 84 mmHg (80-100); TCO2 ABG > 50 mmol/L (23-27); pH ABG 7.56 (7.35-7.45)
--- NOTE | 2023-01-09 21:19 | PC.NURSE ---
Addendum entered by Ladan Louise R.N. 01/10/23 06:07: extra dose of lopressor 25mg held due to blood pressure of 91/52 and heart rate of 61. Addendum entered by Ladan Louise R.N. 01/10/23 05:44: Patient with runs of SVT again, Dr. Hernandez notified and new orders noted. Labs added for morning draw awaiting results. Addendum entered by Ladan Louise R.N. 01/10/23 03:11: Patient awakening and pulling large volumes on bipap. trialed on heated high flow with average results. When falling asleep needing more oxygen to support respiratory status. Fine tuning settings and Dr. Hernandez aware of change. Addendum entered by Ladan Louise R.N. 01/09/23 23:03: Patient having runs of svt heart rate 160-170. Patient able to come out of it on her own, Dr. Hernandez called and new ordered noted. Addendum entered by Ladan Louise R.N. 01/09/23 21:54: Mask removed for patient to drink water, O2 sats only holding above 88 for approximately 4 minutes before O2 sats slowly decreasing. Patient able to swallow pills without difficulty, and minimal coaching. Original Note: Patient becoming very anxious, grasping at covers, respiratory rate 60-70 on bipap, elevated heart rate. first calling merry and referred to teleintensivist. New orders noted for precedex and started at 0.2. slowly increasing to 0.3 with improved results. Heart rate lower to 90-100 and respiratory rate decreasing to 20-30's.
[2023-01-09] MEDS: ACETAMINOPHEN 325 MG TABLET 650 MG PO (21:42)
[2023-01-09] MEDS: METOPROLOL IR 25 MG TABLET PO (22:55)
[2023-01-09 23:03] LABS: Albumin 3.6 g/dL (3.5-5.0); BUN Creatinine Ratio 35.1 (6-22); Blood Urea Nitrogen 20 mg/dL (7-17); Calcium 8.9 mg/dL (8.4-10.2); Chloride 85 mmol/L (98-107); Estimated Glomerular Filt Rate > 60 mL/min (>60); Glucose 130 mg/dL (80-110); HEMOLYSIS < 15 (0-50); Magnesium 1.5 mg/dL (1.6-2.3); Phosphorous 2.5 mg/dL (2.8-4.1); Potassium 4.3 mmol/L (3.4-5.1); Sodium 138 mmol/L (137-145)
[2023-01-09 23:13] LABS: Carbon Dioxide 43 mmol/L (22-32)
[2023-01-09] MEDS: MAGNESIUM SULFATE 2 GM/50 ML PIGGYBACK IV (23:44)
[2023-01-10] VITALS (53 sets, daily range): BP systolic 86–137; BP diastolic 48–78; PULSE 68–108; RESP 14–47; TEMP 31–36.6; O2SAT 90–99
[2023-01-10 04:58] LABS: Add Manual Diff / Slide Review NO; Basophils Absolute Auto 0 /uL (0-100); Basophils Percent Auto 0.1 % (0-2); Eosinophils Absolute Auto 0 /uL (0-450); Hematocrit 38.5 % (36-46); Hemoglobin 12.5 g/dL (12.0-16.0); Lymphocytes Absolute Auto 300 /uL (1100-4500); Lymphocytes Percent Auto 6.5 % (25-40); Mean Corpuscular HGB Conc 32.4 % (30-36); Mean Corpuscular Hemoglobin 29.2 PG (26-34); Mean Corpuscular Volume 90.1 fL (80-100); Monocytes Absolute Auto 100 /uL (0-900); Monocytes Percent Auto 1.2 % (3-14); Neutrophils Absolute Auto 4500 /uL (1500-7000); Neutrophils Percent Auto 92.2 % (50-75); Platelet Count 196 X10^3/uL (150-400); Red Blood Cell Count 4.27 X10^6/uL (4.0-5.2); Red Cell Distribution Width 14.2 % (11.6-14.8); White Blood Cell Count 4.9 X10^3/uL (4.5-11.0)
[2023-01-10 05:17] LABS: BUN Creatinine Ratio 40.6 (6-22); Blood Urea Nitrogen 28 mg/dL (7-17); Calcium 8.5 mg/dL (8.4-10.2); Chloride 84 mmol/L (98-107); Estimated Glomerular Filt Rate > 60 mL/min (>60); Glucose 172 mg/dL (80-110); HEMOLYSIS < 15 (0-50); Potassium 4.7 mmol/L (3.4-5.1); Sodium 134 mmol/L (137-145)
[2023-01-10 05:26] LABS: Carbon Dioxide 46 mmol/L (22-32); Troponin I 0.066 ng/mL (0.01-0.034)
[2023-01-10 05:42] LABS: Magnesium 2.3 mg/dL (1.6-2.3)
[2023-01-10 07:03] LABS: MRSA (Nasal) PCR Not Detected (Not Detect)
--- NOTE | 2023-01-10 08:15 | DI.RAD.S_ITS ---
PROCEDURE: XR CHEST 1V INDICATIONS: shortness of breath TECHNIQUE: One view of the chest was acquired. COMPARISON: [facility], CR, XR CHEST 1V, 01/09/2023, 12:43. FINDINGS: Surgical changes and devices: None. Lungs and pleura: There is pulmonary vascular congestion and mild pulmonary edema. Superimposed bilateral patchy infiltrates cannot be excluded. Small bilateral pleural effusion is seen. No gross pneumothorax. Mediastinum: Tortuous thoracic aorta is again seen. Heart size is enlarged. Bones and chest wall: Severe scoliosis of thoracolumbar spine is seen unchanged from prior study. No suspicious bony lesions. Overlying soft tissues appear unremarkable. IMPRESSION: Finding is concerning for CHF. Underlying bilateral patchy infiltrates cannot be excluded. No pneumothorax. Dictated by: Lucius Porter M.D. on 01/10/2023 at 8:41 Approved by: Lucius Porter M.D. on 01/10/2023 at 8:43
[2023-01-10] MEDS: FUROSEMIDE 40 MG/4 ML VIAL IV ×2 (08:46→17:06)
[2023-01-10] MEDS: ENOXAPARIN 40 MG/0.4 ML SYRINGE SUBCUT (08:47)
--- NOTE | 2023-01-10 08:47 | P.PN_ITS ---
Subjective Subjective Interval history: Required bipap earlier this morning after stopping it overnight. ABG with pCO2 of 91 while on Bipap. She is more lucid today and says she hates the bipap machine. Currently on HFNC while eating lunch. Exam Vital Signs (past 8 hours): - 01/10/23 01:00 01/10/23 01:00 01/10/23 01:03 Temperature Pulse Rate 84 84 Respiratory Rate 27 H 33 H Blood Pressure 121/57 L Pulse Oximetry 98 97 Oxygen Delivery Method 01/10/23 02:00 01/10/23 02:00 01/10/23 02:04 Temperature Pulse Rate 77 81 Respiratory Rate 39 H 26 H Blood Pressure 104/56 L Pulse Oximetry 90 L 94 Oxygen Delivery Method 01/10/23 02:03 01/10/23 03:00 01/10/23 03:00 Temperature Pulse Rate 82 80 Respiratory Rate 20 14 Blood Pressure 104/52 L 97/52 L Pulse Oximetry 94 92 Oxygen Delivery Method 01/10/23 03:01 01/10/23 02:56 01/10/23 03:39 Temperature Pulse Rate 80 80 102 H Respiratory Rate 14 30 H 23 Blood Pressure 104/56 L 97/52 L Pulse Oximetry 93 96 97 Oxygen Delivery Method 01/10/23 04:00 01/10/23 04:00 01/10/23 04:17 Temperature 97.1 F L Pulse Rate 101 H 101 H Respiratory Rate 18 16 Blood Pressure 98/56 L Pulse Oximetry 97 98 Oxygen Delivery Method 01/10/23 05:00 01/10/23 05:00 01/10/23 05:26 Temperature Pulse Rate 75 72 Respiratory Rate 19 16 Blood Pressure 94/55 L Pulse Oximetry 96 96 Oxygen Delivery Method 01/10/23 06:00 01/10/23 06:00 01/10/23 06:06 Temperature Pulse Rate 71 70 Respiratory Rate 19 16 Blood Pressure 86/48 L Pulse Oximetry 96 96 Oxygen Delivery Method 01/10/23 06:06 01/10/23 06:16 01/10/23 05:14 Temperature Pulse Rate 71 72 Respiratory Rate 21 20 Blood Pressure 91/53 L 94/55 L Pulse Oximetry 97 96 Oxygen Delivery Method 01/10/23 06:52 01/10/23 07:00 01/10/23 07:00 Temperature Pulse Rate 68 Respiratory Rate 20 Blood Pressure 100/53 L Pulse Oximetry 96 Oxygen Delivery Method BiPAP 01/10/23 07:00 01/10/23 07:30 01/10/23 08:00 Temperature 97.7 F Pulse Rate 72 75 Respiratory Rate 21 24 Blood Pressure 113/57 L Pulse Oximetry 96 95 Oxygen Delivery Method 01/10/23 08:00 Temperature Pulse Rate 76 Respiratory Rate 33 H Blood Pressure Pulse Oximetry 95 Oxygen Delivery Method Fraction of Inspired Oxygen 35 Oxygen Delivery Method BiPAP Oxygen Flow Rate 4 Narrative Exam Narrative: GEN:? Alert and oriented x3, on HFNC HEENT: moist mucous membranes, PERRL NECK: trachea midline, no JVD CV: regular rate and rhythm, no murmurs PULM:? Slight rales bilaterally, no wheezes or rhonchi ABD: soft, nontender, nondistended, no organomegaly EXT: warm and well perfused with no edema BACK: severe kyphosis and dextroscoliosis NEURO: nonfocal Objective Labs 01/10/23 04:11 01/10/23 04:11 Labs: Laboratory Results - last 24 hr 01/09/23 01/09/23 01/09/23 14:57 14:57 14:57 WBC 7.0 RBC 4.81 Hgb 14.0 Hct 44.2 MCV 91.9 MCH 29.2 MCHC 31.7 RDW 14.5 Plt Count 232 Neut % (Auto) 80.3 H Lymph % (Auto) 7.6 L [place] % (Auto) 11.2 Eos % (Auto) 0.7 L Baso % (Auto) 0.2 Neut # (Auto) 5600 Lymph # (Auto) 500 L [place] # (Auto) 800 Eos # (Auto) 100 Baso # (Auto) 0 ABG pH ABG pCO2 ABG pO2 ABG HCO3 ABG Total CO2 ABG O2 Saturation ABG Base Excess FiO2 Sodium 140 Potassium 4.7 Chloride 89 L Carbon Dioxide 51 H* BUN 18 H Creatinine 0.48 L Estimated GFR > 60 BUN/Creatinine Ratio 37.5 H Glucose 110 Calcium 8.8 Phosphorus Magnesium Total Bilirubin 0.7 AST 27 ALT 25 Alkaline Phosphatase 94 Troponin I NT-Pro-B Natriuret Pep Total Protein 8.2 Albumin 3.9 Globulin 4.3 H Albumin/Globulin Ratio 0.9 L Procalcitonin 0.05 TSH Nasal Screen MRSA (PCR) Chlamy pneumoniae PCR Adenovirus (PCR) B. pertussis DNA (PCR) B.parapertussis DNA PCR Coronavirus OC43 (PCR) Coronavirus HKU1 (PCR) Coronavirus 229E (PCR) SARS-CoV-2 (PCR) Coronavirus NL63 (PCR) Human Metapneumovir PCR Influenza Type A (PCR) Influenza Type B (PCR) M. pneumoniae (PCR) Parainfluenza 1 (PCR) Parainfluenza 2 (PCR) Parainfluenza 3 (PCR) Parainfluenza 4 (PCR) RSV (PCR) Entero/Rhino (PCR) 01/09/23 01/09/23 01/09/23 14:57 14:57 14:57 WBC RBC Hgb Hct MCV MCH MCHC RDW Plt Count Neut % (Auto) Lymph % (Auto) [place] % (Auto) Eos % (Auto) Baso % (Auto) Neut # (Auto) Lymph # (Auto) [place] # (Auto) Eos # (Auto) Baso # (Auto) ABG pH ABG pCO2 ABG pO2 ABG HCO3 ABG Total CO2 ABG O2 Saturation ABG Base Excess FiO2 Sodium Potassium Chloride Carbon Dioxide BUN Creatinine Estimated GFR BUN/Creatinine Ratio Glucose Calcium Phosphorus Magnesium 1.8 Total Bilirubin AST ALT Alkaline Phosphatase Troponin I NT-Pro-B Natriuret Pep 2480 H Total Protein Albumin Globulin Albumin/Globulin Ratio Procalcitonin TSH 1.12 Nasal Screen MRSA (PCR) Chlamy pneumoniae PCR Adenovirus (PCR) B. pertussis DNA (PCR) B.parapertussis DNA PCR Coronavirus OC43 (PCR) Coronavirus HKU1 (PCR) Coronavirus 229E (PCR) SARS-CoV-2 (PCR) Coronavirus NL63 (PCR) Human Metapneumovir PCR Influenza Type A (PCR) Influenza Type B (PCR) M. pneumoniae (PCR) Parainfluenza 1 (PCR) Parainfluenza 2 (PCR) Parainfluenza 3 (PCR) Parainfluenza 4 (PCR) RSV (PCR) Entero/Rhino (PCR) 01/09/23 01/09/23 01/09/23 16:09 16:39 17:45 WBC RBC Hgb Hct MCV MCH MCHC RDW Plt Count Neut % (Auto) Lymph % (Auto) [place] % (Auto) Eos % (Auto) Baso % (Auto) Neut # (Auto) Lymph # (Auto) [place] # (Auto) Eos # (Auto) Baso # (Auto) ABG pH 7.27 L* ABG pCO2 114.7 H* ABG pO2 107 H ABG HCO3 52 H ABG Total CO2 > 50 H ABG O2 Saturation 96 ABG Base Excess 25.0 H FiO2 32 Sodium Potassium Chloride Carbon Dioxide BUN Creatinine Estimated GFR BUN/Creatinine Ratio Glucose Calcium Phosphorus Magnesium Total Bilirubin AST ALT Alkaline Phosphatase Troponin I 0.058 H NT-Pro-B Natriuret Pep Total Protein Albumin Globulin Albumin/Globulin Ratio Procalcitonin TSH Nasal Screen MRSA (PCR) Chlamy pneumoniae PCR Not detected Adenovirus (PCR) Not detected B. pertussis DNA (PCR) Not detected B.parapertussis DNA PCR Not detected Coronavirus OC43 (PCR) Not detected Coronavirus HKU1 (PCR) Not detected Coronavirus 229E (PCR) Not detected SARS-CoV-2 (PCR) Not detected Coronavirus NL63 (PCR) Not detected Human Metapneumovir PCR Not detected Influenza Type A (PCR) Not detected Influenza Type B (PCR) Not detected M. pneumoniae (PCR) Not detected Parainfluenza 1 (PCR) Not detected Parainfluenza 2 (PCR) Not detected Parainfluenza 3 (PCR) Not detected Parainfluenza 4 (PCR) Not detected RSV (PCR) Not detected Entero/Rhino (PCR) Not detected 01/09/23 01/09/23 01/09/23 20:05 22:12 22:12 WBC RBC Hgb Hct MCV MCH MCHC RDW Plt Count Neut % (Auto) Lymph % (Auto) [place] % (Auto) Eos % (Auto) Baso % (Auto) Neut # (Auto) Lymph # (Auto) [place] # (Auto) Eos # (Auto) Baso # (Auto) ABG pH 7.56 H ABG pCO2 56.5 H ABG pO2 84 ABG HCO3 51 H ABG Total CO2 > 50 H ABG O2 Saturation 97 ABG Base Excess 28.0 H FiO2 35 Sodium 138 Potassium 4.3 Chloride 85 L Carbon Dioxide 43 H* BUN 20 H Creatinine 0.57 Estimated GFR > 60 BUN/Creatinine Ratio 35.1 H Glucose 130 H Calcium 8.9 Phosphorus 2.5 L Magnesium 1.5 L Total Bilirubin AST ALT Alkaline Phosphatase Troponin I 0.070 H NT-Pro-B Natriuret Pep Total Protein Albumin 3.6 Globulin Albumin/Globulin Ratio Procalcitonin TSH Nasal Screen MRSA (PCR) Chlamy pneumoniae PCR Adenovirus (PCR) B. pertussis DNA (PCR) B.parapertussis DNA PCR Coronavirus OC43 (PCR) Coronavirus HKU1 (PCR) Coronavirus 229E (PCR) SARS-CoV-2 (PCR) Coronavirus NL63 (PCR) Human Metapneumovir PCR Influenza Type A (PCR) Influenza Type B (PCR) M. pneumoniae (PCR) Parainfluenza 1 (PCR) Parainfluenza 2 (PCR) Parainfluenza 3 (PCR) Parainfluenza 4 (PCR) RSV (PCR) Entero/Rhino (PCR) 01/10/23 01/10/23 01/10/23 04:11 04:11 04:11 WBC 4.9 RBC 4.27 Hgb 12.5 Hct 38.5 MCV 90.1 MCH 29.2 MCHC 32.4 RDW 14.2 Plt Count 196 Neut % (Auto) 92.2 H Lymph % (Auto) 6.5 L [place] % (Auto) 1.2 L Eos % (Auto) 0.0 L Baso % (Auto) 0.1 Neut # (Auto) 4500 Lymph # (Auto) 300 L [place] # (Auto) 100 Eos # (Auto) 0 Baso # (Auto) 0 ABG pH ABG pCO2 ABG pO2 ABG HCO3 ABG Total CO2 ABG O2 Saturation ABG Base Excess FiO2 Sodium 134 L Potassium 4.7 Chloride 84 L Carbon Dioxide 46 H* BUN 28 H Creatinine 0.69 Estimated GFR > 60 BUN/Creatinine Ratio 40.6 H Glucose 172 H Calcium 8.5 Phosphorus Magnesium Total Bilirubin AST ALT Alkaline Phosphatase Troponin I 0.066 H NT-Pro-B Natriuret Pep Total Protein Albumin Globulin Albumin/Globulin Ratio Procalcitonin TSH Nasal Screen MRSA (PCR) Chlamy pneumoniae PCR Adenovirus (PCR) B. pertussis DNA (PCR) B.parapertussis DNA PCR Coronavirus OC43 (PCR) Coronavirus HKU1 (PCR) Coronavirus 229E (PCR) SARS-CoV-2 (PCR) Coronavirus NL63 (PCR) Human Metapneumovir PCR Influenza Type A (PCR) Influenza Type B (PCR) M. pneumoniae (PCR) Parainfluenza 1 (PCR) Parainfluenza 2 (PCR) Parainfluenza 3 (PCR) Parainfluenza 4 (PCR) RSV (PCR) Entero/Rhino (PCR) 01/10/23 01/10/23 04:11 05:41 WBC RBC Hgb Hct MCV MCH MCHC RDW Plt Count Neut % (Auto) Lymph % (Auto) [place] % (Auto) Eos % (Auto) Baso % (Auto) Neut # (Auto) Lymph # (Auto) [place] # (Auto) Eos # (Auto) Baso # (Auto) ABG pH ABG pCO2 ABG pO2 ABG HCO3 ABG Total CO2 ABG O2 Saturation ABG Base Excess FiO2 Sodium Potassium Chloride Carbon Dioxide BUN Creatinine Estimated GFR BUN/Creatinine Ratio Glucose Calcium Phosphorus Magnesium 2.3 Total Bilirubin AST ALT Alkaline Phosphatase Troponin I NT-Pro-B Natriuret Pep Total Protein Albumin Globulin Albumin/Globulin Ratio Procalcitonin TSH Nasal Screen MRSA (PCR) Not detected Chlamy pneumoniae PCR Adenovirus (PCR) B. pertussis DNA (PCR) B.parapertussis DNA PCR Coronavirus OC43 (PCR) Coronavirus HKU1 (PCR) Coronavirus 229E (PCR) SARS-CoV-2 (PCR) Coronavirus NL63 (PCR) Human Metapneumovir PCR Influenza Type A (PCR) Influenza Type B (PCR) M. pneumoniae (PCR) Parainfluenza 1 (PCR) Parainfluenza 2 (PCR) Parainfluenza 3 (PCR) Parainfluenza 4 (PCR) RSV (PCR) Entero/Rhino (PCR) [facility] Medical History COPD (chronic obstructive pulmonary disease) Social History household members: spouse Smoking Status: Never smoker alcohol intake: never Assessment & Plan Assessment & Plan narrative: # acute on chronic hypercapnic and hypoxic respiratory failure -patient normally on 1-2L at home, required Bipap in ED due to ABG with pCO2 of 114 -BMP with bicarb 51 so likely chronic CO2 retainer -continue Bipap -repeat ABG 51 01/09 then 91 on 01/10 -etiology likely multifactorial due to CHF as pulm edema on CXR which may be from patient's R sided CHF, BNP 2480 with her COPD and kyphosis/scoliosis -steroids ordered to cover for COPD exacerbation, however no wheezes on exam, once off bipap and ABG improved can potentially stop steroids -continue lasix 40 BID -spoke with RT who will try setting patient up with home trilogy as she likely qualifies with severe thoracic cage abnormality and pCO2 >45 # HFpEF exacerbation -echo with EF 50-55% with diastolic dysfunction -lasix as above #elevated troponin due to myocardial injury -trop 0.058, will trend but likely due to resp failure as no CP Code status is full code. COVID negative. DVT prophylaxis with Lovenox. Proxy is . I have reviewed home meds and used all available resources to reconcile the home meds. I spent a total of 35 minutes of critical care time on this patient's care today; this time is exclusive of procedural time. Dispo: Home in 2-3 days. Time Spent With Patient Critical Care time: I spent a total of [] minutes of critical care time on this patient's care today; this time is exclusive of procedural time.
--- NOTE | 2023-01-10 10:25 | PM.PN.EICU ---
Subjective Subjective IF CAMERA ACTIVATED, patient seen via real-time interactive audiovisual communication: Camera activated Consent obtained for tele-tank car inspector care: Yes Patient Location: ICU Provider location (State): [place] Other participants/roles: RN Interval history: Patient on BiPAP overnight, however per RN when switched off to HFNC this morning she appeared more somnolent. Diuresing well, on Lasix IV. BPs downtrending this morning after receiving Metop last night. Current Medications Current Medications Medications: Home Medications albuterol sulfate 90 mcg/actuation aerosol inhaler (Ventolin HFA) 2 puff inhalation Q4H PRN Wheezing 01/09/23 [History Confirmed 01/09/23] famotidine 20 mg tablet 20 mg PO BID 01/09/23 [History Confirmed 01/09/23] metoprolol tartrate 50 mg tablet 50 mg PO BID 01/09/23 [History Confirmed 01/09/23] Visit Medications (administered) Generic Name Dose Route Start Last Admin Trade Name Freq PRN Reason Stop Dose Admin Acetaminophen 650 mg 01/09/23 17:06 01/09/23 21:42 Acetaminophen 325 Mg Tablet PO 650 mg Q6H PRN Administration Fever/Mild Pain (1-3) Albuterol/Ipratropium 3 ml 01/09/23 16:58 01/09/23 18:00 Albuterol/Ipratropium 3 Ml Ampul INH 3 ml [id number] PRN Administration shortness of breath/wheezing Enoxaparin Sodium 40 mg 01/10/23 09:00 01/10/23 08:47 Enoxaparin 40 Mg/0.4 Ml Syringe SUBCUT 40 mg DAILY JONATHAN Administration Furosemide 40 mg 01/09/23 19:20 01/10/23 08:46 Furosemide 40 Mg/4 Ml Vial IV 40 mg 1600,0800 JONATHAN Administration dexmedeTOMIDine in 0.9 % NaCL 400 mcg in 100 mls @ 3.266 mls/hr 01/09/23 20:00 01/10/23 05:43 Precedex IV 0 mcg/kg/hr TITRATE JONATHAN 0 mls/hr Titration Protocol 0.2 MCG/KG/HR Methylprednisolone 60 mg 01/09/23 21:00 01/10/23 05:43 Methylprednisolone 40 Mg/Ml Vial IV 60 mg Q6HR JONATHAN Administration Objective Ventilator Parameters: Ventilator Settings FiO2 0.45 Labs 01/10/23 04:11 01/10/23 04:11 Labs: Laboratory Results - last 24 hr 01/09/23 01/09/23 01/09/23 14:57 14:57 14:57 WBC 7.0 RBC 4.81 Hgb 14.0 Hct 44.2 MCV 91.9 MCH 29.2 MCHC 31.7 RDW 14.5 Plt Count 232 Neut % (Auto) 80.3 H Lymph % (Auto) 7.6 L [place] % (Auto) 11.2 Eos % (Auto) 0.7 L Baso % (Auto) 0.2 Neut # (Auto) 5600 Lymph # (Auto) 500 L [place] # (Auto) 800 Eos # (Auto) 100 Baso # (Auto) 0 ABG pH ABG pCO2 ABG pO2 ABG HCO3 ABG Total CO2 ABG O2 Saturation ABG Base Excess FiO2 Sodium 140 Potassium 4.7 Chloride 89 L Carbon Dioxide 51 H* BUN 18 H Creatinine 0.48 L Estimated GFR > 60 BUN/Creatinine Ratio 37.5 H Glucose 110 Calcium 8.8 Phosphorus Magnesium Total Bilirubin 0.7 AST 27 ALT 25 Alkaline Phosphatase 94 Troponin I NT-Pro-B Natriuret Pep Total Protein 8.2 Albumin 3.9 Globulin 4.3 H Albumin/Globulin Ratio 0.9 L Procalcitonin 0.05 TSH Nasal Screen MRSA (PCR) Chlamy pneumoniae PCR Adenovirus (PCR) B. pertussis DNA (PCR) B.parapertussis DNA PCR Coronavirus OC43 (PCR) Coronavirus HKU1 (PCR) Coronavirus 229E (PCR) SARS-CoV-2 (PCR) Coronavirus NL63 (PCR) Human Metapneumovir PCR Influenza Type A (PCR) Influenza Type B (PCR) M. pneumoniae (PCR) Parainfluenza 1 (PCR) Parainfluenza 2 (PCR) Parainfluenza 3 (PCR) Parainfluenza 4 (PCR) RSV (PCR) Entero/Rhino (PCR) 01/09/23 01/09/23 01/09/23 14:57 14:57 14:57 WBC RBC Hgb Hct MCV MCH MCHC RDW Plt Count Neut % (Auto) Lymph % (Auto) [place] % (Auto) Eos % (Auto) Baso % (Auto) Neut # (Auto) Lymph # (Auto) [place] # (Auto) Eos # (Auto) Baso # (Auto) ABG pH ABG pCO2 ABG pO2 ABG HCO3 ABG Total CO2 ABG O2 Saturation ABG Base Excess FiO2 Sodium Potassium Chloride Carbon Dioxide BUN Creatinine Estimated GFR BUN/Creatinine Ratio Glucose Calcium Phosphorus Magnesium 1.8 Total Bilirubin AST ALT Alkaline Phosphatase Troponin I NT-Pro-B Natriuret Pep 2480 H Total Protein Albumin Globulin Albumin/Globulin Ratio Procalcitonin TSH 1.12 Nasal Screen MRSA (PCR) Chlamy pneumoniae PCR Adenovirus (PCR) B. pertussis DNA (PCR) B.parapertussis DNA PCR Coronavirus OC43 (PCR) Coronavirus HKU1 (PCR) Coronavirus 229E (PCR) SARS-CoV-2 (PCR) Coronavirus NL63 (PCR) Human Metapneumovir PCR Influenza Type A (PCR) Influenza Type B (PCR) M. pneumoniae (PCR) Parainfluenza 1 (PCR) Parainfluenza 2 (PCR) Parainfluenza 3 (PCR) Parainfluenza 4 (PCR) RSV (PCR) Entero/Rhino (PCR) 01/09/23 01/09/23 01/09/23 16:09 16:39 17:45 WBC RBC Hgb Hct MCV MCH MCHC RDW Plt Count Neut % (Auto) Lymph % (Auto) [place] % (Auto) Eos % (Auto) Baso % (Auto) Neut # (Auto) Lymph # (Auto) [place] # (Auto) Eos # (Auto) Baso # (Auto) ABG pH 7.27 L* ABG pCO2 114.7 H* ABG pO2 107 H ABG HCO3 52 H ABG Total CO2 > 50 H ABG O2 Saturation 96 ABG Base Excess 25.0 H FiO2 32 Sodium Potassium Chloride Carbon Dioxide BUN Creatinine Estimated GFR BUN/Creatinine Ratio Glucose Calcium Phosphorus Magnesium Total Bilirubin AST ALT Alkaline Phosphatase Troponin I 0.058 H NT-Pro-B Natriuret Pep Total Protein Albumin Globulin Albumin/Globulin Ratio Procalcitonin TSH Nasal Screen MRSA (PCR) Chlamy pneumoniae PCR Not detected Adenovirus (PCR) Not detected B. pertussis DNA (PCR) Not detected B.parapertussis DNA PCR Not detected Coronavirus OC43 (PCR) Not detected Coronavirus HKU1 (PCR) Not detected Coronavirus 229E (PCR) Not detected SARS-CoV-2 (PCR) Not detected Coronavirus NL63 (PCR) Not detected Human Metapneumovir PCR Not detected Influenza Type A (PCR) Not detected Influenza Type B (PCR) Not detected M. pneumoniae (PCR) Not detected Parainfluenza 1 (PCR) Not detected Parainfluenza 2 (PCR) Not detected Parainfluenza 3 (PCR) Not detected Parainfluenza 4 (PCR) Not detected RSV (PCR) Not detected Entero/Rhino (PCR) Not detected 01/09/23 01/09/23 01/09/23 20:05 22:12 22:12 WBC RBC Hgb Hct MCV MCH MCHC RDW Plt Count Neut % (Auto) Lymph % (Auto) [place] % (Auto) Eos % (Auto) Baso % (Auto) Neut # (Auto) Lymph # (Auto) [place] # (Auto) Eos # (Auto) Baso # (Auto) ABG pH 7.56 H ABG pCO2 56.5 H ABG pO2 84 ABG HCO3 51 H ABG Total CO2 > 50 H ABG O2 Saturation 97 ABG Base Excess 28.0 H FiO2 35 Sodium 138 Potassium 4.3 Chloride 85 L Carbon Dioxide 43 H* BUN 20 H Creatinine 0.57 Estimated GFR > 60 BUN/Creatinine Ratio 35.1 H Glucose 130 H Calcium 8.9 Phosphorus 2.5 L Magnesium 1.5 L Total Bilirubin AST ALT Alkaline Phosphatase Troponin I 0.070 H NT-Pro-B Natriuret Pep Total Protein Albumin 3.6 Globulin Albumin/Globulin Ratio Procalcitonin TSH Nasal Screen MRSA (PCR) Chlamy pneumoniae PCR Adenovirus (PCR) B. pertussis DNA (PCR) B.parapertussis DNA PCR Coronavirus OC43 (PCR) Coronavirus HKU1 (PCR) Coronavirus 229E (PCR) SARS-CoV-2 (PCR) Coronavirus NL63 (PCR) Human Metapneumovir PCR Influenza Type A (PCR) Influenza Type B (PCR) M. pneumoniae (PCR) Parainfluenza 1 (PCR) Parainfluenza 2 (PCR) Parainfluenza 3 (PCR) Parainfluenza 4 (PCR) RSV (PCR) Entero/Rhino (PCR) 01/10/23 01/10/23 01/10/23 04:11 04:11 04:11 WBC 4.9 RBC 4.27 Hgb 12.5 Hct 38.5 MCV 90.1 MCH 29.2 MCHC 32.4 RDW 14.2 Plt Count 196 Neut % (Auto) 92.2 H Lymph % (Auto) 6.5 L [place] % (Auto) 1.2 L Eos % (Auto) 0.0 L Baso % (Auto) 0.1 Neut # (Auto) 4500 Lymph # (Auto) 300 L [place] # (Auto) 100 Eos # (Auto) 0 Baso # (Auto) 0 ABG pH ABG pCO2 ABG pO2 ABG HCO3 ABG Total CO2 ABG O2 Saturation ABG Base Excess FiO2 Sodium 134 L Potassium 4.7 Chloride 84 L Carbon Dioxide 46 H* BUN 28 H Creatinine 0.69 Estimated GFR > 60 BUN/Creatinine Ratio 40.6 H Glucose 172 H Calcium 8.5 Phosphorus Magnesium Total Bilirubin AST ALT Alkaline Phosphatase Troponin I 0.066 H NT-Pro-B Natriuret Pep Total Protein Albumin Globulin Albumin/Globulin Ratio Procalcitonin TSH Nasal Screen MRSA (PCR) Chlamy pneumoniae PCR Adenovirus (PCR) B. pertussis DNA (PCR) B.parapertussis DNA PCR Coronavirus OC43 (PCR) Coronavirus HKU1 (PCR) Coronavirus 229E (PCR) SARS-CoV-2 (PCR) Coronavirus NL63 (PCR) Human Metapneumovir PCR Influenza Type A (PCR) Influenza Type B (PCR) M. pneumoniae (PCR) Parainfluenza 1 (PCR) Parainfluenza 2 (PCR) Parainfluenza 3 (PCR) Parainfluenza 4 (PCR) RSV (PCR) Entero/Rhino (PCR) 01/10/23 01/10/23 04:11 05:41 WBC RBC Hgb Hct MCV MCH MCHC RDW Plt Count Neut % (Auto) Lymph % (Auto) [place] % (Auto) Eos % (Auto) Baso % (Auto) Neut # (Auto) Lymph # (Auto) [place] # (Auto) Eos # (Auto) Baso # (Auto) ABG pH ABG pCO2 ABG pO2 ABG HCO3 ABG Total CO2 ABG O2 Saturation ABG Base Excess FiO2 Sodium Potassium Chloride Carbon Dioxide BUN Creatinine Estimated GFR BUN/Creatinine Ratio Glucose Calcium Phosphorus Magnesium 2.3 Total Bilirubin AST ALT Alkaline Phosphatase Troponin I NT-Pro-B Natriuret Pep Total Protein Albumin Globulin Albumin/Globulin Ratio Procalcitonin TSH Nasal Screen MRSA (PCR) Not detected Chlamy pneumoniae PCR Adenovirus (PCR) B. pertussis DNA (PCR) B.parapertussis DNA PCR Coronavirus OC43 (PCR) Coronavirus HKU1 (PCR) Coronavirus 229E (PCR) SARS-CoV-2 (PCR) Coronavirus NL63 (PCR) Human Metapneumovir PCR Influenza Type A (PCR) Influenza Type B (PCR) M. pneumoniae (PCR) Parainfluenza 1 (PCR) Parainfluenza 2 (PCR) Parainfluenza 3 (PCR) Parainfluenza 4 (PCR) RSV (PCR) Entero/Rhino (PCR) Exam Vital Signs (past 8 hours): - 01/10/23 03:00 01/10/23 03:00 01/10/23 03:01 Temperature Pulse Rate 80 80 Respiratory Rate 14 14 Blood Pressure 97/52 L Pulse Oximetry 92 93 Oxygen Delivery Method Fraction of Inspired Oxygen 01/10/23 02:56 01/10/23 03:39 01/10/23 04:00 Temperature Pulse Rate 80 102 H 101 H Respiratory Rate 30 H 23 18 Blood Pressure 104/56 L 97/52 L Pulse Oximetry 96 97 97 Oxygen Delivery Method Fraction of Inspired Oxygen 01/10/23 04:00 01/10/23 04:17 01/10/23 05:00 Temperature 97.1 F L Pulse Rate 101 H 75 Respiratory Rate 16 19 Blood Pressure 98/56 L Pulse Oximetry 98 96 Oxygen Delivery Method Fraction of Inspired Oxygen 01/10/23 05:00 01/10/23 05:26 01/10/23 06:00 Temperature Pulse Rate 72 71 Respiratory Rate 16 19 Blood Pressure 94/55 L Pulse Oximetry 96 96 Oxygen Delivery Method Fraction of Inspired Oxygen 01/10/23 06:00 01/10/23 06:06 01/10/23 06:06 Temperature Pulse Rate 70 Respiratory Rate 16 Blood Pressure 86/48 L 91/53 L Pulse Oximetry 96 Oxygen Delivery Method Fraction of Inspired Oxygen 01/10/23 06:16 01/10/23 05:14 01/10/23 06:52 Temperature Pulse Rate 71 72 68 Respiratory Rate 21 20 20 Blood Pressure 94/55 L Pulse Oximetry 97 96 96 Oxygen Delivery Method Fraction of Inspired Oxygen 01/10/23 07:00 01/10/23 07:00 01/10/23 07:00 Temperature 97.7 F Pulse Rate 72 Respiratory Rate 21 Blood Pressure 100/53 L Pulse Oximetry 96 Oxygen Delivery Method BiPAP Fraction of Inspired Oxygen 01/10/23 07:30 01/10/23 08:00 01/10/23 08:00 Temperature Pulse Rate 75 76 Respiratory Rate 24 33 H Blood Pressure 113/57 L Pulse Oximetry 95 95 Oxygen Delivery Method Fraction of Inspired Oxygen 01/10/23 08:30 01/10/23 09:16 Temperature Pulse Rate 74 Respiratory Rate 22 Blood Pressure 99/53 L Pulse Oximetry 94 Oxygen Delivery Method Fraction of Inspired Oxygen 35 Fraction of Inspired Oxygen 35 Oxygen Delivery Method BiPAP Oxygen Flow Rate 4 Narrative Exam Narrative: Patient on BiPAP, MAP in the 70s. I did not perform a Tele-Eval of patient. Assessment & Plan Assessment & Plan narrative: 72F with COPD, Kyphosis admitted with Acute Respiratory Failure due to CHF Exacerbation, COPD exacerbation. # Acute Hypoxemic, Hypercarbic Respiratory Failure requiring NIPPV likely due to pulmonary edema, COPD, Kyphosis # HF Exacerbation # COPD Exacerbation - Restart BiPAP today, follow up blood gas - Repeat CXR - Continue BID Lasix, goal at least 1L negative. - Monitor lytes closely, replete aggressively - Continue Metop, given softer BPs will change to half dose (12.5mg) for now. Holding parameters - Continue nebs, steroids - VTE, GI PPx Please contact Tele ICU with any status changes Time Spent With Patient Critical Care time: I spent a total of [] minutes of critical care time on this patient's care today; this time is exclusive of procedural time.
[2023-01-10 10:30] LABS: pH ABG 7.37 (7.35-7.45)
[2023-01-10 10:31] LABS: Fractionated Inspired Oxygen 35; HCO3 ABG 53 mmol/L (23-27); Oxygen Saturation ABG 93 % (95-100); PCO2 ABG 90.6 mmHg (35-45); PO2 ABG 77 mmHg (80-100); TCO2 ABG > 50 mmol/L (23-27)
--- NOTE | 2023-01-10 10:50 | CM.DANOTE ---
DCP: Case received, EMR reviewed. Spouse, Pino, was at bedside, for patient is currently on BIPAP. Introduced self and role. Was able to obtain information regarding patient's baseline activity level at home from spouse. DCP assessment completed with information currently available. Patient is a 72 year old female who admitted yesterday evening to the care of the hospitalist team. PCP: Dr. Orozco. Payer: confirmed: Medicare. Patient came to the hospital via private vehicle secondary to having increased confusion, memory issues. Patient has history of COPD, and is on home oxygen, between 2-4 liters, depending upon her activity. Notes indicate that their oxygen generator at home failed a several weeks ago, and has been on portable oxygen, unable to get anyone out to fix this problem. Notes also indicate that patient had been to an outside hospital recently, was hypoxic, increased her oxygen and sent her home. Patient had recently been hard to arouse. Patient's CO2 had been significantly elevated, which may have contributed to her confusion. Patient did not want to be intubated, but was placed on BIPAP. Patient was diagnosed with hypercapnic respiratory failure. Met with spouse in patient's room. Confirmed that they both reside in [place]. At her baseline, she is independent, has been able to go up and down the stairs with her oxygen. 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 Confirmed that they have a battery power generator that he can plug concentrator in, if there is a power outage. The barrier is that [employer] is no longer delivering to the [place], spouse had been having to come to the [facility] for portables. Did discuss the possibility of another vendor. Brought this up during team rounds, RT will look into another vendor, such as [employer]. P: DCP to continue to follow for needs. Plan is home when deemed medically stable. Rody Jeter RN/School Boat Driver Discharge Planning/Care Management Discharge Assessment Start: 01/10/23 10:47 Freq: Status: Active Protocol: Document 01/10/23 10:47 (Rec: 01/10/23 10:50 [id number]) Discharge Planning Assessment Assigned Procurement Manager Rody Jeter RN/School Boat Driver Advance Directives? No History Provided By Family Member,Medical Record Prior Living Arrangements House Household Members spouse Type of transporation used prior to Drives own vehicle admit Independent with ADL's Yes Is patient alert and oriented? Yes Needs Assistance With Home Chores / Shopping Caregiver for Another No DME Already Rented / Owned Oxygen Barriers to Discharge Yes Comment [place] been [place]. Asking to see if RT can look into changing vendors. Discharge Plan Home Transportation Arrangement Spouse Referrals Initiated None needed Whiteboard Updated in Patient Room with Yes name and ext. # of Procurement Manager Review Status In Process Next Review Type Continued Stay Review
[2023-01-10] MEDS: METOPROLOL IR 25 MG TABLET 12.5 MG PO ×2 (12:26→20:43)
--- NOTE | 2023-01-10 20:36 | PM.ICURNDS ---
- Date Patient Seen: 01/10/23 Time Patient Seen: 20:36 :: This patient was seen via real time interactive two-way audiovisual telecommunication. Note: no acute events today. afebrile, HD stable, mental status improved remains on bipap intermittently abg appropriate continue current care,please eICU call if condition changes
[2023-01-11] VITALS (16 sets, daily range): BP systolic 100–135; BP diastolic 56–71; PULSE 60–98; RESP 11–40; TEMP 32–36.6; O2SAT 5–99
[2023-01-11 00:22] LABS: BUN Creatinine Ratio 64.7 (6-22); Blood Urea Nitrogen 44 mg/dL (7-17); Calcium 8.6 mg/dL (8.4-10.2); Chloride 81 mmol/L (98-107); Estimated Glomerular Filt Rate > 60 mL/min (>60); Glucose 169 mg/dL (80-110); HEMOLYSIS < 15 (0-50); Potassium 4.1 mmol/L (3.4-5.1); Sodium 130 mmol/L (137-145)
[2023-01-11 00:29] LABS: Carbon Dioxide 46 mmol/L (22-32)
--- NOTE | 2023-01-11 01:09 | PC.NURSE ---
Pt having intermittent short bursts of SVT that spontaneously resolved, BP stable. Overnight tele ICU doc notified. BMP and Mg ordered. No replacements ordered.
[2023-01-11] MEDS: dexmedeTOMIDine in 0.9 % NaCL 400 MCG/100 ML PLAST..BAG IV (02:21)
[2023-01-11 04:50] LABS: Add Manual Diff / Slide Review NO; Basophils Absolute Auto 0 /uL (0-100); Basophils Percent Auto 0.1 % (0-2); Eosinophils Absolute Auto 0 /uL (0-450); Eosinophils Percent Auto 0.1 % (2-4); Hematocrit 38.9 % (36-46); Hemoglobin 12.8 g/dL (12.0-16.0); Lymphocytes Absolute Auto 400 /uL (1100-4500); Lymphocytes Percent Auto 2.9 % (25-40); Mean Corpuscular Hemoglobin 29.1 PG (26-34); Mean Corpuscular Volume 88.2 fL (80-100); Monocytes Absolute Auto 300 /uL (0-900); Monocytes Percent Auto 2.2 % (3-14); Neutrophils Absolute Auto 12800 /uL (1500-7000); Neutrophils Percent Auto 94.7 % (50-75); Platelet Count 229 X10^3/uL (150-400); Red Blood Cell Count 4.41 X10^6/uL (4.0-5.2); Red Cell Distribution Width 14.1 % (11.6-14.8); White Blood Cell Count 13.5 X10^3/uL (4.5-11.0)
[2023-01-11 05:00] LABS: BUN Creatinine Ratio 80.4 (6-22); Blood Urea Nitrogen 45 mg/dL (7-17); Calcium 8.6 mg/dL (8.4-10.2); Chloride 82 mmol/L (98-107); Estimated Glomerular Filt Rate > 60 mL/min (>60); Glucose 191 mg/dL (80-110); HEMOLYSIS 48 (0-50); Potassium 4.1 mmol/L (3.4-5.1); Sodium 131 mmol/L (137-145)
[2023-01-11 05:14] LABS: Carbon Dioxide 44 mmol/L (22-32)
[2023-01-11] MEDS: FUROSEMIDE 40 MG/4 ML VIAL IV ×2 (07:47→16:02)
[2023-01-11 08:19] LABS: Fractionated Inspired Oxygen 30; HCO3 ABG 52 mmol/L (23-27); Oxygen Saturation ABG 93 % (95-100); PO2 ABG 65 mmHg (80-100); TCO2 ABG > 50 mmol/L (23-27)
[2023-01-11] MEDS: ENOXAPARIN 40 MG/0.4 ML SYRINGE SUBCUT (09:06)
[2023-01-11] MEDS: FAMOTIDINE 20 MG TABLET PO (09:07)
[2023-01-11] MEDS: METOPROLOL IR 25 MG TABLET 12.5 MG PO ×2 (09:07→09:59)
--- NOTE | 2023-01-11 09:48 | P.TELICUPN_ITS ---
Subjective Subjective IF CAMERA ACTIVATED, patient seen via real-time interactive audiovisual communication: Camera activated Consent obtained for tele-senior rd engineer care: Yes Patient Location: ICU Provider location (State): [place] Other participants/roles: RN, Pharmacy Interval history: Patient on BIPAP overnight, taken off this morning and resting comfortably on 3L NC. Intermittent runs of SVT. BP is WNL. Current Medications Current Medications Medications: Home Medications albuterol sulfate 90 mcg/actuation aerosol inhaler (Ventolin HFA) 2 puff inhalation Q4H PRN Wheezing 01/09/23 [History Confirmed 01/09/23] famotidine 20 mg tablet 20 mg PO BID 01/09/23 [History Confirmed 01/09/23] metoprolol tartrate 50 mg tablet 50 mg PO BID 01/09/23 [History Confirmed 01/09/23] Visit Medications (administered) Generic Name Dose Route Start Last Admin Trade Name Freq PRN Reason Stop Dose Admin Acetaminophen 650 mg 01/09/23 17:06 01/09/23 21:42 Acetaminophen 325 Mg Tablet PO 650 mg Q6H PRN Administration Fever/Mild Pain (1-3) Albuterol/Ipratropium 3 ml 01/09/23 16:58 01/09/23 18:00 Albuterol/Ipratropium 3 Ml Ampul INH 3 ml [id number] PRN Administration shortness of breath/wheezing Enoxaparin Sodium 40 mg 01/10/23 09:00 01/11/23 09:06 Enoxaparin 40 Mg/0.4 Ml Syringe SUBCUT 40 mg DAILY JONATHAN Administration Famotidine 20 mg 01/11/23 09:00 01/11/23 09:07 Famotidine 20 Mg Tablet PO 20 mg DAILY JONATHAN Administration Furosemide 40 mg 01/09/23 19:20 01/11/23 07:47 Furosemide 40 Mg/4 Ml Vial IV 40 mg 1600,0800 JONATHAN Administration Methylprednisolone 60 mg 01/09/23 21:00 01/11/23 05:55 Methylprednisolone 40 Mg/Ml Vial IV 01/11/23 23:59 60 mg Q6HR JONATHAN Administration Objective Ventilator Parameters: Ventilator Settings FiO2 40 Labs 01/11/23 04:40 01/11/23 04:40 Labs: Laboratory Results - last 24 hr 01/10/23 01/11/23 01/11/23 10:08 00:03 04:40 WBC 13.5 H D RBC 4.41 Hgb 12.8 Hct 38.9 MCV 88.2 MCH 29.1 MCHC 33.0 RDW 14.1 Plt Count 229 Neut % (Auto) 94.7 H Lymph % (Auto) 2.9 L [place] % (Auto) 2.2 L Eos % (Auto) 0.1 L Baso % (Auto) 0.1 Neut # (Auto) 03428 H Lymph # (Auto) 400 L [place] # (Auto) 300 Eos # (Auto) 0 Baso # (Auto) 0 ABG pH 7.37 ABG pCO2 90.6 H* ABG pO2 77 L ABG HCO3 53 H ABG Total CO2 > 50 H ABG O2 Saturation 93 L ABG Base Excess 28.0 H FiO2 35 Sodium 130 L Potassium 4.1 Chloride 81 L Carbon Dioxide 46 H* BUN 44 H Creatinine 0.68 Estimated GFR > 60 BUN/Creatinine Ratio 64.7 H Glucose 169 H Calcium 8.6 Magnesium 2.0 01/11/23 01/11/23 04:40 08:00 WBC RBC Hgb Hct MCV MCH MCHC RDW Plt Count Neut % (Auto) Lymph % (Auto) [place] % (Auto) Eos % (Auto) Baso % (Auto) Neut # (Auto) Lymph # (Auto) [place] # (Auto) Eos # (Auto) Baso # (Auto) ABG pH 7.50 H ABG pCO2 65.4 H* ABG pO2 65 L ABG HCO3 52 H ABG Total CO2 > 50 H ABG O2 Saturation 93 L ABG Base Excess 29.0 H FiO2 30 Sodium 131 L Potassium 4.1 Chloride 82 L Carbon Dioxide 44 H* BUN 45 H Creatinine 0.56 Estimated GFR > 60 BUN/Creatinine Ratio 80.4 H Glucose 191 H Calcium 8.6 Magnesium Exam Vital Signs (past 8 hours): - 01/11/23 02:00 01/11/23 02:00 01/11/23 03:00 Temperature Pulse Rate 74 Respiratory Rate 19 Blood Pressure 108/67 117/58 L Pulse Oximetry 98 Oxygen Delivery Method Oxygen Flow Rate Fraction of Inspired Oxygen 01/11/23 03:00 01/11/23 04:00 01/11/23 04:00 Temperature 97.5 F L Pulse Rate 69 80 Respiratory Rate 22 26 H Blood Pressure 135/64 Pulse Oximetry 97 96 Oxygen Delivery Method Oxygen Flow Rate Fraction of Inspired Oxygen 01/11/23 04:48 01/11/23 04:55 01/11/23 05:00 Temperature Pulse Rate Respiratory Rate Blood Pressure 122/57 L Pulse Oximetry Oxygen Delivery Method BiPAP Oxygen Flow Rate Fraction of Inspired Oxygen 35 01/11/23 05:00 01/11/23 03:00 01/11/23 05:46 Temperature Pulse Rate 81 Respiratory Rate 25 H Blood Pressure Pulse Oximetry 98 Oxygen Delivery Method Oxygen Flow Rate Fraction of Inspired Oxygen 40 40 01/11/23 06:00 01/11/23 06:00 01/11/23 07:00 Temperature Pulse Rate 79 72 Respiratory Rate 40 H 25 H Blood Pressure 124/58 L Pulse Oximetry 98 82 L Oxygen Delivery Method Oxygen Flow Rate Fraction of Inspired Oxygen 01/11/23 07:33 01/11/23 07:46 01/11/23 07:46 Temperature Pulse Rate 91 H Respiratory Rate 40 H Blood Pressure 129/58 L Pulse Oximetry 86 L Oxygen Delivery Method BiPAP Oxygen Flow Rate Fraction of Inspired Oxygen 01/11/23 08:00 01/11/23 07:00 01/11/23 08:00 Temperature 97.8 F Pulse Rate 81 Respiratory Rate 28 H Blood Pressure Pulse Oximetry 92 93 Oxygen Delivery Method Oxygen Flow Rate 3 Fraction of Inspired Oxygen Fraction of Inspired Oxygen 40 Oxygen Delivery Method BiPAP Oxygen Flow Rate 3 Narrative Exam Narrative: I did not perform a physical exam on Ms. Null. Assessment & Plan Assessment & Plan narrative: 72F with COPD, Kyphosis admitted with Acute Respiratory Failure due to CHF Exacerbation, COPD exacerbation. # Acute Hypoxemic, Hypercarbic Respiratory Failure requiring NIPPV likely due to pulmonary edema, COPD, Kyphosis - improving # HF Exacerbation # COPD Exacerbation - Continue on nasal cannula, target SpO2 is 88-92%. BiPAP on standby overnight. - Continue BID Lasix, goal at least 1L negative today. Consider transition from IV to PO - Monitor lytes closely, replete aggressively - Metop increased to 25 BID given SVT and improved BPs - Continue nebs, steroids. Steroid converted to PO Pred tomorrow for 5 day co urse - VTE, GI PPx - If WBC continues to climb, monitor for fevers, can consider abx. Please contact Tele ICU with any status changes Time Spent With Patient Critical Care time: I spent a total of [] minutes of critical care time on this patient's care today; this time is exclusive of procedural time.
--- NOTE | 2023-01-11 15:08 | CM.DPC ---
DCP Cont: Checked in with patient. She was sitting up in her chair, son at bedside. She is feeling much better. Asked her if she was interested in home health services, declined, does not feel that she needs this. She is hopeful to go home soon. P: DCP to continue to follow. Plan is home when medically stable. Rody Jeter RN/Care Manager
--- NOTE | 2023-01-11 18:23 | P.PN_ITS ---
Exam Vital Signs (past 8 hours): - 01/11/23 11:33 01/11/23 12:53 01/11/23 15:23 Temperature 97.3 F L Pulse Rate Respiratory Rate Blood Pressure Pulse Oximetry Oxygen Delivery Method Nasal Cannula Nasal Cannula 01/11/23 16:00 Temperature 97.6 F Pulse Rate 98 H Respiratory Rate 18 Blood Pressure 125/71 Pulse Oximetry 94 Oxygen Delivery Method Fraction of Inspired Oxygen 40 Oxygen Delivery Method Nasal Cannula Oxygen Flow Rate 3 Narrative Exam Narrative: GEN:? Alert and oriented x3, on NC and appears comfortable HEENT: moist mucous membranes, PERRL NECK: trachea midline, no JVD CV: regular rate and rhythm, no murmurs PULM:? Rales now absent, no wheezes or rhonchi ABD: soft, nontender, nondistended, no organomegaly EXT: warm and well perfused with no edema BACK: severe kyphosis and dextroscoliosis NEURO: nonfocal Objective Labs 01/11/23 04:40 01/11/23 04:40 Labs: Laboratory Results - last 24 hr 01/11/23 01/11/23 01/11/23 00:03 04:40 04:40 WBC 13.5 H D RBC 4.41 Hgb 12.8 Hct 38.9 MCV 88.2 MCH 29.1 MCHC 33.0 RDW 14.1 Plt Count 229 Neut % (Auto) 94.7 H Lymph % (Auto) 2.9 L [place] % (Auto) 2.2 L Eos % (Auto) 0.1 L Baso % (Auto) 0.1 Neut # (Auto) 35793 H Lymph # (Auto) 400 L [place] # (Auto) 300 Eos # (Auto) 0 Baso # (Auto) 0 ABG pH ABG pCO2 ABG pO2 ABG HCO3 ABG Total CO2 ABG O2 Saturation ABG Base Excess FiO2 Sodium 130 L 131 L Potassium 4.1 4.1 Chloride 81 L 82 L Carbon Dioxide 46 H* 44 H* BUN 44 H 45 H Creatinine 0.68 0.56 Estimated GFR > 60 > 60 BUN/Creatinine Ratio 64.7 H 80.4 H Glucose 169 H 191 H Calcium 8.6 8.6 Magnesium 2.0 01/11/23 08:00 WBC RBC Hgb Hct MCV MCH MCHC RDW Plt Count Neut % (Auto) Lymph % (Auto) [place] % (Auto) Eos % (Auto) Baso % (Auto) Neut # (Auto) Lymph # (Auto) [place] # (Auto) Eos # (Auto) Baso # (Auto) ABG pH 7.50 H ABG pCO2 65.4 H* ABG pO2 65 L ABG HCO3 52 H ABG Total CO2 > 50 H ABG O2 Saturation 93 L ABG Base Excess 29.0 H FiO2 30 Sodium Potassium Chloride Carbon Dioxide BUN Creatinine Estimated GFR BUN/Creatinine Ratio Glucose Calcium Magnesium PFSH Medical History COPD (chronic obstructive pulmonary disease) Social History household members: spouse Smoking Status: Never smoker alcohol intake: never Assessment & Plan Assessment & Plan narrative: # acute on chronic hypercapnic and hypoxic respiratory failure -patient normally on 1-2L at home, required Bipap in ED due to ABG with pCO2 of 114 -BMP with bicarb 51 so likely chronic CO2 retainer -now off Bipap -repeat ABG 51 01/09 then 91 on 01/10 -etiology likely multifactorial due to CHF as pulm edema on CXR which may be from patient's R sided CHF, BNP 2480 with her COPD and kyphosis/scoliosis -steroids ordered to cover for COPD exacerbation, now on prednisone 40mg po x5 days -stop IV lasix, start torsemide 20mg daily -RT working on home trilogy as she likely qualifies with severe thoracic cage abnormality and pCO2 >45 # HFpEF exacerbation -echo with EF 50-55% with diastolic dysfunction -now euvolemic with diuretics #elevated troponin due to myocardial injury -trop 0.058, will trend but likely due to resp failure as no CP Code status is full code. COVID negative. DVT prophylaxis with Lovenox. Proxy is . I have reviewed home meds and used all available resources to reconcile the home meds. Dispo: Home on 01/12. Time Spent With Patient Critical Care time: I spent a total of [] minutes of critical care time on this patient's care today; this time is exclusive of procedural time.
[2023-01-11] MEDS: METOPROLOL IR 25 MG TABLET PO (20:51)
--- NOTE | 2023-01-11 22:00 | RT ---
RN spoke to the pt regarding BiPAP use tonight. The pt refused BiPAP. Currently pt is supported on 4L NC. Will cont. to monitor.
[2023-01-12] VITALS (7 sets, daily range): BP systolic 128–143; BP diastolic 67–74; PULSE 65–98; RESP 14–31; TEMP 30–36.8; O2SAT 92–99
[2023-01-12 05:08] LABS: Add Manual Diff / Slide Review NO; Basophils Absolute Auto 0 /uL (0-100); Basophils Percent Auto 0.1 % (0-2); Eosinophils Absolute Auto 0 /uL (0-450); Hematocrit 39.5 % (36-46); Hemoglobin 13.1 g/dL (12.0-16.0); Lymphocytes Absolute Auto 500 /uL (1100-4500); Mean Corpuscular HGB Conc 33.1 % (30-36); Mean Corpuscular Volume 87.6 fL (80-100); Monocytes Absolute Auto 800 /uL (0-900); Monocytes Percent Auto 6.3 % (3-14); Neutrophils Absolute Auto 11100 /uL (1500-7000); Neutrophils Percent Auto 89.6 % (50-75); Platelet Count 211 X10^3/uL (150-400); Red Blood Cell Count 4.51 X10^6/uL (4.0-5.2); Red Cell Distribution Width 13.9 % (11.6-14.8); White Blood Cell Count 12.3 X10^3/uL (4.5-11.0)
[2023-01-12 05:19] LABS: BUN Creatinine Ratio 75.8 (6-22); Blood Urea Nitrogen 47 mg/dL (7-17); Calcium 8.4 mg/dL (8.4-10.2); Chloride 83 mmol/L (98-107); Estimated Glomerular Filt Rate > 60 mL/min (>60); Glucose 162 mg/dL (80-110); HEMOLYSIS 19 (0-50); Potassium 3.5 mmol/L (3.4-5.1); Sodium 130 mmol/L (137-145)
[2023-01-12 05:30] LABS: Carbon Dioxide 43 mmol/L (22-32)
--- NOTE | 2023-01-12 06:32 | PC.NURSE ---
Pt placed on BIPAP @ 0200 AM for increasing number of sleep apnea episodes resulting in pt desatting to mid 50s and sustaining sats in the 70s. Pt work of breathing and neurological status remained unchanged. Pt tolerated BIPAP overnight at 30% 16/6 and placed back on 1L NC @ 0500 when awake.
--- NOTE | 2023-01-12 10:54 | CM.DPC ---
DCP continued: CM spoke with Respiratory therapy who stated the patients home trilogy should be set up at 11Am this morning and currently they rep is in the patients room doing patient teaching. Patient does not want HH and is looking forward to going home with her to Monday. CM let intake manager know that patient will most likely need priority boarding [place] ferry back to monday. CM let Dr. Hazel know about triology plan and DC plan. stated he will most likely DC her today after he rounds. Cm will follow up on this and assist with any new DC planning needs that may arise. Jacinta Vazquez RNassistant front desk manager
--- NOTE | 2023-01-12 11:15 | P.DS_ITS ---
History of Present Illness History of Present Illness Date Patient Seen: 01/09/23 Chief complaint: Disorientation, hard to wake up, memory issues Narrative: Sayra Null is a 72yo F with PMH of right-sided HF on chronic 1-2L O2, COPD, and scoliosis with kyphosis who presents with several days of worsening SOB and changes in mental status. History is obtained from as patient is int ermittently altered. He states she has been increasingly become more SOB and loopy after her home O2 machine stopped working, so he brought her to [place] ED. There they told her to increase her O2 and discharged her. She seemed to be better at home but then began to worsen and she became more and more altered so he brought her to [place] ED. In the ED patient had an ABG with pCO2 of 114 and was placed on Bipap. Patient's mental status currently seems to have improved on Bipap and she is oriented x2. Says she would like to be full code. Discharge Providers Provider Date of admission: 01/09/23 17:14 Discharge Date: 01/12/23 Primary care physician: Kvng Orozco MD Consults: 01/09/23 17:07 Consult to Tele-mounter smoking pipe Routine Comment: Consulting Provider: [facility] [employer] Reason for consultation: Translator/Interpreter services Discharge provider: Corbin Hazel MD Summary Hospital Course Discharge Diagnosis: 1. Acute on chronic hypoxemic and hypercarbic respiratory failure, present on admission and improved. 2. COPD exacerbation, present on admission and improved. 3. Diastolic heart failure exacerbation, present on admission and improved. 4. Severe thoracic kyphosis affecting ventilation, present on admission and improved. Hospital Course: The patient is a 72-year-old female with a history of chronic hypoxic respi ratory failure presenting with dyspnea. At the time of admit the patient severe hypercarbia with a pCO2 of 114 after having been instructed to turn up her oxygen at home the patient was treated with BiPAP initially as well as empiric diuresis, steroids and bronchodilators. Patient was approved for a home ventilator given her severe kyphosis and being at a musculoskeletal disadvantage for ventilation. The patient improved and ultimately a trilogy was obtained. The patient was given the device with instructions in the hospital prior to discharge. She lives in [place] and she and her are anxious to return [place] Oxygen settings will remain low at 1-2% she is a CO2 retainer. Status at Discharge Cognitive/behavioral status at discharge: oriented Functional status at discharge: uses cane/walker Overall status at discharge: patient is back to baseline Time Spent with Patient Time spent: Greater than 30 minutes Exam Vital Signs (past 8 hours): - 01/12/23 04:00 01/12/23 04:17 01/12/23 05:52 Temperature 97.6 F Pulse Rate 76 74 Respiratory Rate 22 Blood Pressure 128/67 Pulse Oximetry 94 94 Oxygen Delivery Method Nasal Cannula Oxygen Flow Rate 1 1 Fraction of Inspired Oxygen 30 24 01/12/23 08:21 01/12/23 10:47 Temperature 98.3 F Pulse Rate 98 H Respiratory Rate 22 Blood Pressure 135/74 Pulse Oximetry 95 Oxygen Delivery Method Nasal Cannula Oxygen Flow Rate 1 Fraction of Inspired Oxygen Fraction of Inspired Oxygen 24 SaO2/FiO2 Ratio 391 Oxygen Delivery Method Nasal Cannula Oxygen Flow Rate 1 Narrative Exam Narrative: GEN:? Alert and oriented x3, on NC and appears comfortable HEENT: moist mucous membranes, PERRL NECK: trachea midline, no JVD CV: regular rate and rhythm, no murmurs PULM:? Rales now absent, no wheezes or rhonchi ABD: soft, nontender, nondistended, no organomegaly EXT: warm and well perfused with no edema BACK: severe kyphosis and dextroscoliosis NEURO: nonfocal Objective Imaging Chest x-ray: Radiologist's impression: Lungs and pleura:? There is pulmonary vascular congestion and mild pulmonary edema.? Superimposed bilateral patchy infiltrates cannot be excluded.? Small bilateral pleural effusion is seen.? No gross pneumothorax. ? Mediastinum:? Tortuous thoracic aorta is again seen.? Heart size is enlarged.? ? Bones and chest wall:? Severe scoliosis of thoracolumbar spine is seen unchanged from prior study.? No suspicious bony lesions.? Overlying soft tissues appear unremarkable.? ? IMPRESSION:? Finding is concerning for CHF.? Underlying bilateral patchy infiltrates cannot be excluded.? No pneumothorax. ? Labs 01/12/23 04:50 01/12/23 04:50 Labs: Laboratory Results - last 24 hr 01/12/23 01/12/23 04:50 04:50 WBC 12.3 H RBC 4.51 Hgb 13.1 Hct 39.5 MCV 87.6 MCH 29.0 MCHC 33.1 RDW 13.9 Plt Count 211 Neut % (Auto) 89.6 H Lymph % (Auto) 4.0 L [place] % (Auto) 6.3 Eos % (Auto) 0.0 L Baso % (Auto) 0.1 Neut # (Auto) 02622 H Lymph # (Auto) 500 L [place] # (Auto) 800 Eos # (Auto) 0 Baso # (Auto) 0 Sodium 130 L Potassium 3.5 Chloride 83 L Carbon Dioxide 43 H* BUN 47 H Creatinine 0.62 Estimated GFR > 60 BUN/Creatinine Ratio 75.8 H Glucose 162 H Calcium 8.4 PFSH Medical History COPD (chronic obstructive pulmonary disease) Social History household members: spouse Smoking Status: Never smoker alcohol intake: never Discharge Plan Discharge Plan Patient Disposition: Home Provider Discharge Comment: Close follow up with primary care. Discharge orders & Medications Prescriptions: New prednisone 20 mg Tablet 40 mg PO DAILY Qty: 3 6RF torsemide 10 mg Tablet 20 mg PO DAILY Qty: 30 3RF metoprolol tartrate 25 mg Tablet 25 mg PO BID Qty: 60 3RF Continued famotidine 20 mg tablet 20 mg PO BID Patient Comments: Take 1 tablet (20 mg total) by mouth Twice a day albuterol sulfate [Ventolin HFA] 90 mcg/actuation HFA aerosol inhaler 2 puff INHALATION Q4H PRN (Reason: Wheezing) Patient Comments: Inhale 2 puffs into the lungs every 4 (four) hours as needed for Wheezing Discontinued metoprolol tartrate 50 mg tablet 50 mg PO BID Patient Comments: TAKE ONE TABLET BY MOUTH TWICE DAILY Medication counseling provided by Pharmacist: No Follow up/Referrals: Kvng Orozco MD [Primary Care Provider] - (follow up with your primary care physcian ) Diet/Activity/Treatments Diet: Low-sodium Activity: As tolerated Visit Report/Discharge Packet Stand Alone Forms: Congestive Heart Failure, Patient Portal/API Discharge Data Primary Care Provider: Kvng Orozco
[2023-01-12] MEDS: POTASSIUM CHLORIDE 20 MEQ TAB 40 MEQ PO (11:25)
[2023-01-12] MEDS: predniSONE 20 MG TABLET 40 MG PO (11:25)
[2023-01-12] MEDS: TORSEMIDE 10 MG TABLET 20 MG PO (11:25)
[2023-01-12] MEDS: FAMOTIDINE 20 MG TABLET PO (11:26)
[2023-01-12] MEDS: METOPROLOL IR 25 MG TABLET PO (11:26)
[2023-01-18 08:11] LABS: PCO2 ABG 65.4 mmHg (35-45)
== END 2023-01-12 12:48 | disposition home or self-care (01) | DRG 291 ==
LOC: ED 16:54 → AC 17:14 → ICU 18:19
PROVIDERS: Emergency Medicine; Internal Medicine Critical Care Medicine; Internal Medicine Pulmonary Disease; Nurse Practitioner Family; Admitting Provider Student in an Organized Health Care Education/Training Program; Emergency Provider Emergency Medicine; Family Provider Student in an Organized Health Care Education/Training Program; PCP Student in an Organized Health Care Education/Training Program; Referring Provider Emergency Medicine; Visit Provider Student in an Organized Health Care Education/Training Program
DX: I50.30 Unspecified diastolic (congestive) heart failure (principal); J96.21 Acute and chronic respiratory failure with hypoxia; J96.22 Acute and chronic respiratory failure with hypercapnia; J44.1 Chronic obstructive pulmonary disease with (acute) exacerbation; M40.294 Other kyphosis, thoracic region; Z99.81 Dependence on supplemental oxygen; Z20.822 Contact with and (suspected) exposure to COVID-19
CPT/HCPCS: 36415; 36600; 70450; 71045; 80048; 80053; 80069; 82805; 83735; 83880; 84145; 84443; 84484; 85025; 87633; 87797; 93005; 93010; 93306; 94618; 94640; 94660; 94762; 99232; 99285; 99291; A9270; J0696; J1650; J1940; J2920; J2930; J3475